=== PATIENT | male | born 1965 | race Caucasian/White ===

== ENCOUNTER 2020-08-22 10:47 | Outpatient (CLI) | payer OTHER, SELFPAY ==
--- NOTE | 2020-08-22 11:00 | XR_ITS ---
WS: [id number] Lumbar spine, 3 views, 08/22/2020 Clinical Data: PSORIATIC ARTHRITIS Comparison: Lumbar spine, 02/28/2011. Findings: No compression fractures or subluxation is seen. There is degenerative disc narrowing at L5. Anterior osteophyte formation is present at L4 and especially L5.. The transverse processes and SI joints are normal. XR/XR lumbar spine 2-3V* [id number] Impression: 1. Degenerative disc narrowing at L5-S1. 2. Anterior osteoarthritic change at L4 and L5.
--- NOTE | 2020-08-22 11:00 | XR_ITS ---
WS: [id number] Right knee, AP and lateral views, 08/22/2020 Clinical Data: PSORIATIC ARTHRITIS Comparison: None. Findings: There is severe osteoarthritic change with narrowing and adjacent calcifications of the medial joint space. There is moderate narrowing of the lateral joint space. The posterior patella shows irregulari ty with adjacent soft tissue calcifications. XR/XR knee RT 1-2V [id number] Impression: Severe osteoarthritis of the right knee.
--- NOTE | 2020-08-22 11:00 | XR_ITS ---
WS: [id number] Left ankle, AP and lateral views, 08/22/2020 Clinical Data: PSORIATIC ARTHRITIS Comparison: None. Findings: No new fractures or dislocations are seen. There is an old healed fracture of the distal left fibula. There is narrowing of the joint space between the distal tibia and the talus. There is osteoarthriti c change of the anterior aspect of the talus and also the posterior aspect. There is a small plantar spur. XR/XR ankle LT 2V [id number] Impression: 1. Narrowing of the left ankle joint space. 2. Osteoarthritic change of the talus.
--- NOTE | 2020-08-22 11:00 | XR_ITS ---
WS: [id number] Right hand, 2 views, 08/22/2020 Clinical Data: PSORIATIC ARTHRITIS Comparison: None. Findings: No fractures or dislocations are seen. The soft tissues are unremarkable. There is flexio n deformity of the right fourth finger at the PIP joint.There is osteoarthritic narrowing at the righ t third MP joint. There is osteoarthritic change of the proximal role of carpal bones as they articul ate with the radius and ulna. There is cyst formation of the distal right radius on the ulnar side. T here is osteoarthritis of the distal radius and ulna as they articulate with the proximal carpal bone s. XR/XR hand RT 2V [id number] Impression: 1. Flexion deformity at right fourth PIP joint of the hand. 2. Osteoarthritic narrowing of the right third MP joint. 3. Osteoarthritis of the proximal row of carpals and of the distal radius and u lavatory attendant of the right wrist.
== END 2020-08-22 10:48 | disposition home or self-care (01) ==
LOC: RAD 10:53
PROVIDERS: Visit Provider Dermatology
DX: L40.50 Arthropathic psoriasis, unspecified (principal); M17.11 Unilateral primary osteoarthritis, right knee; M21.941 Unspecified acquired deformity of hand, right hand
CPT/HCPCS: 72100; 73120; 73560; 73600

== ENCOUNTER → 2020-11-28 09:41 | Outpatient (BNVA) | payer BC, SELFPAY | PROVIDERS: PCP Nurse Practitioner Family; Referring Provider Nurse Practitioner Family; Visit Provider Urology | DX: N40.0 Benign prostatic hyperplasia without lower urinary tract symptoms (principal); R97.20 Elevated prostate specific antigen [PSA] | CPT/HCPCS: 81003; G0103 ==

== ENCOUNTER 2022-01-25 13:18 | Observation (INO) | payer BC, SELFPAY ==
[2022-01-25] VITALS (22 sets, daily range): BP systolic 104–176; BP diastolic 64–140; PULSE 73–122; RESP 13–32; TEMP 36.1–36.5; O2SAT 92–98; BMI 33.6; BMI 33.8
--- NOTE | 2022-01-25 13:44 | ECG_ITS ---
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 Measurements Intervals [place] Rate: 108 P: [place]: QRS: 54 QRSD: 82 T: 66 QT: 338 QTc: 454 Interpretive Statements ATRIAL FIBRILLATION WITH RAPID VENTRICULAR RESPONSE SEPTAL MYOCARDIAL INFARCTION , OF INDETERMINATE AGE [40+ ms Q WAVE IN V1/V2] No previous ECG available for comparison Electronically Signed On 01-25-2022 17:36:02 CDT by Richi Lang M.D. [id number]
[2022-01-25 14:21] LABS: Basophils # 0.1 10^3/uL (0.0-0.1); Basophils % 0.9 %; Eosinophils # 0.3 10^3/uL (0.0-0.8); Eosinophils % 2.3 %; Hematocrit 42.8 % (42.0-52.0); Hemoglobin 13.2 g/dL (11.7-16.6); Lymphocytes # 1.8 10^3/uL (0.8-4.8); Lymphocytes % 13.9 %; Mean Corpuscular HGB Conc 30.8 g/dL (30.0-36.0); Mean Corpuscular Hemoglobin 26.3 pg (28.0-34.0); Mean Corpuscular Volume 85.4 fl (80-94); Mean Platelet Volume 10.5 fL (7.4-10.4); Monocytes # 1.2 10^3/uL (0.2-0.9); Monocytes % 9.3 %; Neutrophils # 9.34 10^3/uL (1.8-7.7); Neutrophils % 73.1 %; Nucleated Red Blood Cells % 0 %; Platelet Count 309 10^3/cmm (130-400); Red Blood Count 5.01 10^6/uL (4.1-5.3); Red Cell Distribution Width 13.7 % (12.1-15.1); White Blood Count 12.8 10^3/uL (4.0-10.0)
--- NOTE | 2022-01-25 14:22 | XRR_ITS ---
PROCEDURE INFORMATION: Exam: XR Chest Exam date and time: 01/25/2022 2:47 PM Age: 56 years old Clinical indication: Shortness of breath; Additional info: SOB TECHNIQUE: Imaging protocol: Radiologic exam of the chest. Views: 1 view. COMPARISON: No relevant prior studies available. FINDINGS: Lungs: Unremarkable. No consolidation. Pleural spaces: Unremarkable. No pleural effusion. No pneumothorax. Heart/Mediastinum: Unremarkable. No cardiomegaly. Bones/joints: Unremarkable. XR/XR chest 1V portable [id number] IMPRESSION: No acute findings.
--- NOTE | 2022-01-25 14:28 | W.ED.SOB ---
HPI - SOB/Dyspnea General: Chief Complaint: Shortness of Breath/Dyspnea Stated Complaint: sob Time Seen by Provider: 01/25/22 14:15 Source: patient Mode of arrival: ambulatory Limitations: no limitations History of Present Illness: HPI Narrative: 56-year-old male states that has been having shortness of breath over the last 2 weeks. He states that he has exertional dyspnea and anytime laying flat he states he also has been having swelling in his legs. Denies any cough denies any fever no history of heart disease he denies any history of congestive heart failure. Patient is tachypneic here patient is also tachycardic in A. fib heart rate in the 120s he has no history of A. fib as well he denies any chest pain. Associated symptoms: Deny abdominal pain, chest pain, fever(s), nausea or vomiting Review of Systems Const: Denies: fever(s), chills, body aches or change in appetite Eyes: Denies: blurry vision or eye discomfort ENMT: Denies: throat pain or dental pain Card: Reports: irregular heart rhythm; Denies: chest pain Resp: Reports: dyspnea GI: Denies: abdominal pain, nausea, vomiting or diarrhea : Denies: dysuria Musc: Reports: extremity swelling; Denies: neck pain or back pain Skin/Breast: Denies: rash Neuro: Denies: headache(s) Psych: Denies: depression Josef/Lymph: Denies: easy bruising All/Imm: Denies: urticaria PFSH ED PFSH: Medical History Elevated PSA Family History Mother Arthritis Father , unknown age Heart attack Social History Smoking and tobacco status: former smoker Alcohol intake: current Marital status: Current occupational status: employed Current occupation: self employeed History of recent travel: No Physical Exam Const: COMMON NORMALS: patient oriented x3 GENERAL APPEARANCE: in distress HENMT: COMMON NORMALS: normocephalic and atraumatic HEAD & SCALP: normocephalic and atraumatic Eye: COMMON NORMALS: Equal, round and reactive pupils present and EOMs intact bilaterally PUPIL: Yes Equal, round and reactive pupils present Neck/C-Spine: COMMON NORMALS: full ROM and supple Chest: COMMONS NORMALS: normal inspection of the chest and normal palpation of entire chest wall Resp: COMMON NORMALS: No retractions, No use of accessory muscles and clear to auscultation bilaterally EFFORT & INSPECTION: Yes tachypneic AUSCULTATION: clear to auscultation bilaterally Cardio: COMMON NORMALS: No murmurs present (Cardio) RATE: tachycardic RHYTHM: abnormal rhythm irregularly irregular GI: COMMON NORMALS: Normal to inspection, nondistended, normoactive bowel sounds present, Soft to palpation, non-tender and no masses PALPATION: Yes Soft to palpation Extremity: COMMON NORMALS: full ROM NARRATIVE EXTREMITY EXAM: 2+ lower extremity edema Neuro: COMMON NORMALS: patient oriented x3, moves all extremities and no focal motor deficits Psych: COMMON NORMALS: mental status grossly normal, Normal thought process present and cooperative THOUGHT PROCESS: Normal thought process present Skin: COMMON NORMALS: no rashes or lesions noted and no wounds GENERAL SKIN EXAM: no rashes or lesions noted Course Vital Signs: Vital signs: Vital Signs Temperature 97.4 F L 01/25/22 13:23 Pulse Rate 80 01/25/22 16:00 Respiratory Rate 20 H 01/25/22 16:00 Blood Pressure 172/116 01/25/22 16:00 Pulse Oximetry 95 01/25/22 16:00 Oxygen Delivery Me thod 01/25/22 15:00 MDM - SOB/Dyspnea Medical Decision Making Patient presents here with shortness of breath mainly laying flat consistent with likely congestive heart failure he does have lower extremity edema and elevated BNP he has no history of heart failure or A. fib he was in A. fib with RVR here as well. Patient given Druix spoke to the hospital will admit his heart rate improved here after Cardizem. Lab Data : 01/25/22 14:11 01/25/22 14:11 Labs/Radiology: Radiology Impressions Chest X-Ray 01/25/22 14:22 IMPRESSION: No acute findings. Chest CTA 01/25/22 15:01 IMPRESSION: Bilateral small volume pleural effusions. Laboratory Results WBC 12.8 10^3/uL (4.0-10.0) H 01/25/22 14:11 RBC 5.01 10^6/uL (4.1-5.3) 01/25/22 14:11 Hgb 13.2 g/dL (11.7-16.6) 01/25/22 14:11 Hct 42.8 % (42.0-52.0) 01/25/22 14:11 MCV 85.4 fl (80-94) 01/25/22 14:11 MCH 26.3 pg (28.0-34.0) L 01/25/22 14:11 MCHC 30.8 g/dL (30.0-36.0) 01/25/22 14:11 RDW 13.7 % (12.1-15.1) 01/25/22 14:11 Plt Count 309 10^3/cmm (130-400) 01/25/22 14:11 MPV 10.5 fL (7.4-10.4) H 01/25/22 14:11 Neut % (Auto) 73.1 % 01/25/22 14:11 Lymph % (Auto) 13.9 % 01/25/22 14:11 Cochran % (Auto) 9.3 % 01/25/22 14:11 Eos % (Auto) 2.3 % 01/25/22 14:11 Baso % (Auto) 0.9 % 01/25/22 14:11 Neut # (Auto) 9.34 10^3/uL (1.8-7.7) H 01/25/22 14:11 Lymph # (Auto) 1.8 10^3/uL (0.8-4.8) 01/25/22 14:11 Cochran # (Auto) 1.2 10^3/uL (0.2-0.9) H 01/25/22 14:11 Eos # (Auto) 0.3 10^3/uL (0.0-0.8) 01/25/22 14:11 Baso # (Auto) 0.1 10^3/uL (0.0-0.1) 01/25/22 14:11 Nucleated RBC % (auto) 0 % 01/25/22 14:11 Nucleated RBCs # 0.0 /100WBC 01/25/22 14:11 PT 13.50 SECONDS (12.1-14.9) 01/25/22 14:11 INR 1.00 (0.8-1.2) 01/25/22 14:11 D-Dimer 2.08 ug/mIFEU (0-0.59) H 01/25/22 14:11 Sodium 136 mmol/L (136-145) 01/25/22 14:11 Potassium 4.4 mmol/L (3.5-5.1) 01/25/22 14:11 Chloride 98 mmol/L (98-107) 01/25/22 14:11 Carbon Dioxide 25 mmol/L (22-29) 01/25/22 14:11 Anion Gap 17.4 (5-19) 01/25/22 14:11 BUN 15 mg/dL (6-20) 01/25/22 14:11 Creatinine 1.3 mg/dL (0.7-1.2) H 01/25/22 14:11 GFR Calculation 56.9 mL/min (90-130) L 01/25/22 14:11 Glucose 155 mg/dL (65-115) H 01/25/22 14:11 Calculated Osmolality 286 mOsm/kg (285-295) 01/25/22 14:11 Calcium 9.6 mg/dL (8.5-10.5) 01/25/22 14:11 Total Bilirubin 0.9 mg/dL (0.15-1.2) 01/25/22 14:11 AST 23 U/L (0-40) 01/25/22 14:11 ALT 19 U/L (0-41) 01/25/22 14:11 Alkaline Phosphatase 83 U/L (40-130) 01/25/22 14:11 Troponin T Baseline 13 ng/L (0-15) 01/25/22 14:11 NT-Pro-B Natriuret Pep 9172 pg/mL (0-125) H 01/25/22 14:11 Total Protein 6.9 g/dL (6.6-8.7) 01/25/22 14:11 Albumin 4.2 g/dL (3.5-5.2) 01/25/22 14:11 Globulin 2.7 g/dL (1.3-4.6) 01/25/22 14:11 SARS-CoV-2 Ag (Rapid) Negative (Negative) 01/25/22 15:05 EKG Data EKG 1: I personally reviewed and interpreted this EKG as follows: EKG Interpretation Date: 01/25/22 EKG interpretation time: 14:05 Interpretation: afib with rvr hr [address] or t wave abnormalities qrs 82 qtc 401 Critical Care Time Critical Care Time: Critical Care Time: Yes Total Critical Care Time: 40 Attestation: The high probability of a clinically significant, sudden or life threatening deterioration of the patient's cv system(s) required my full and direct attention, intervention and personal management. The critical care time is as shown. This time is in addition to time spent performing any reported procedures but includes the following: [x] Data and vital sign review and interpretation [x] Patient assessment, examination and intervention [x] Documentation [x] Medication orders and management Discharge Plan Discharge Patient Disposition: Admitted As Inpatient Clinical Impression: Atrial fibrillation with RVR, Pleural effusion, Leg edema, Acute dyspnea Condition: Stable Coding Level of Care Code ED County Judge for Chg Fwd Exam Comprehensive
[2022-01-25 14:48] LABS: Troponin(5th) Baseline 13 ng/L (0-15)
[2022-01-25 14:56] LABS: D Dimer 2.08 ug/mIFEU (0-0.59)
[2022-01-25 14:58] LABS: Alanine Aminotransferase 19 U/L (0-41); Albumin Level 4.2 g/dL (3.5-5.2); Alkaline Phosphatase 83 U/L (40-130); Aspartate Amino Transferase 23 U/L (0-40); Blood Urea Nitrogen 15 mg/dL (6-20); Calcium 9.6 mg/dL (8.5-10.5); Carbon Dioxide 25 mmol/L (22-29); Chloride 98 mmol/L (98-107); Globulin 2.7 g/dL (1.3-4.6); Glomerular Filtration Rate 56.9 mL/min (90-130); Glucose 155 mg/dL (65-115); NT Pro B Type Natriuretic Pept 9172 pg/mL (0-125); Osmolality Calculated 286 mOsm/kg (285-295); Sodium 136 mmol/L (136-145); Total Bilirubin 0.9 mg/dL (0.15-1.2); Total Protein 6.9 g/dL (6.6-8.7)
[2022-01-25] MEDS: dilTIAZem 5 mg/mL SDV 5 mL 20 MG IVP (14:59)
--- NOTE | 2022-01-25 15:01 | CTR_ITS ---
PROCEDURE INFORMATION: Exam: CTA Chest With Contrast Exam date and time: 01/25/2022 4:11 PM Age: 56 years old Clinical indication: Shortness of breath; Additional info: SOB TECHNIQUE: Imaging protocol: Computed tomographic angiography of the chest with contrast. 3D rendering (Not supervised by radiologist): MIP and/or 3D reconstructed images were created by the technologist. Radiation optimization: All CT scans at this facility use at least one of these dose optimization techniques: automated exposure control; mA and/or kV adjustment per patient size (includes targeted exams where dose is matched to clinical indication); or iterative reconstruction. Contrast material: OMNI 350; Contrast volume: 95 ml; Contrast route: INTRAVENOUS (IV); COMPARISON: CR (CHEST, ) 01/25/2022 2:47 PM RADIATION DOSE METRICS: Total DLP (mGy-cm): 577.3 FINDINGS: Pulmonary arteries: Normal. No pulmonary emboli. Aorta: No aortic aneurysm. Lungs: No consolidation. No masses. Pleural spaces: Bilateral small volume pleural effusions. No pneumothorax. Heart: No cardiomegaly. No pericardial effusion. Lymph nodes: No enlarged lymph nodes. Bones/joints: No acute fracture. Soft tissues: Unremarkable. CT/CT angio chest PE protcl [id number] IMPRESSION: Bilateral small volume pleural effusions.
[2022-01-25 15:06] LABS: Anion Gap 17.4 (5-19)
[2022-01-25 15:07] LABS: Potassium 4.4 mmol/L (3.5-5.1)
[2022-01-25 15:32] LABS: SARS Covid-2 Antigen Negative (Negative)
[2022-01-25] MEDS: iohexol 350 mg/mL 100 mL Btl IV (16:14)
[2022-01-25] MEDS: FUROsemide 10 mg/mL SDV 10mL 60 MG IVP (16:24)
--- NOTE | 2022-01-25 16:36 | USCV_ITS ---
Ash Alejandre Age: 56 Gender: M : 1965 Exam Date: 01/25/2022 16:53 Ordering Phys: Yasmin Guerin MD Technologist: Yaa Solis Exam Location: [facility] [place] Indication: New DX of HF BP: 172 / 116 HR: 93 Rhythm: Atrial fibrillation Technical Quality: Adequate MEASUREMENTS (Male / Female) Normal Values 2D ECHO LV Diastolic Diameter PLAX 4.2 cm 4.2 - 5.9 / 3.9 - 5.3 cm LV Systolic Diameter PLAX 2.8 cm LV Chamber Size 3.3 cm IVS Diastolic Thickness 1.2 cm 0.6 - 1.0 / 0.6 - 0.9 cm IVS Systolic Thickness 1.5 cm LVPW Diastolic Thickness 1.5 cm 0.6 - 1.0 / 0.6 - 0.9 cm LVPW Systolic Thickness 1.8 cm RV Chamber Size 2.3 cm LVOT Diameter 2.0 cm LV Ejection Fraction 2D Teich 61.7 % LV Ejection Fraction MOD 2C 24.4 % LV Ejection Fraction 2C AL 24.2 % LA Diameter 4.3 cm LA Width 2.4 cm LA Height 4.0 cm RA Width 3.5 cm RA Height 4.9 cm Aorta at Sinotubular Diameter 3.1 cm IVC Diameter 2.0 cm M-MODE Aortic Annulus Diameter 4.7 cm LA Ao Ratio MM 1.0 MV E Point Septal Separation 1.6 cm DOPPLER AV Peak Velocity 104.0 cm/s LVOT Peak Velocity 67.0 cm/s AV Area Cont Eq vti 2.6 cm squared AV Area Cont Eq pk 2.1 cm squared MV Area PHT 4.1 cm squared Mitral E to A Ratio 2.3 MV E' Velocity 57.4 cm/s Mitral E to MV E' Ratio 9.0 Mitral E to LV E' Lateral Ratio 7.0 Mitral E to LV E' Septal Ratio 13.0 TR Peak Velocity 157.7 cm/s TR Peak Gradient 10.0 mmHg TR Mean Velocity 116.0 cm/s TR Mean Gradient 6.5 mmHg TR Velocity Time Integral 53.2 cm TV Peak E Velocity 97.0 cm/s Right Atrial Pressure 3.0 mmHg Pulmonary Artery Systolic Pressu 13.0 mmHg RV Acceleration Time 0.1 s RV Ejection Time 0.3 s RV AcT/ET 0.3 FINDINGS Left Ventricle This is a poor quality study with poor visualization. Additionally there is atrial fibrillation with a mildly rapid rate. This diminishes the sensitivity of the examination. The ventricle is probably normal in size. There are no obvious wall motion disturbances. The left ventricular function is probably lower limit of normal to mildly diminished though this is difficult to assess. Diastolic function cannot be determined due to the atrial fibrillation. Right Ventricle Right ventricle not well visualized. Normal right ventricular size and systolic function. Right Atrium The right atrium is normal in size. Left Atrium The left atrium is normal in size. Mitral Valve Mitral valve is not well seen. No obvious regurgitation or stenosis. Aortic Valve Aortic valve is not well seen. No obvious regurgitation or stenosis. Tricuspid Valve Not well seen. Pulmonic Valve Not well seen. Pericardium Normal pericardium without effusion. Aorta Normal ascending aorta dimension. IVC Not well seen. CONCLUSIONS This is a poor quality study with poor visualization. Additionally there is atrial fibrillation with a mildly rapid rate. This diminishes the sensitivity of the examination. The ventricle is probably normal in size. There are no obvious wall motion disturbances. The left ventricular function is probably lower limit of normal to mildly diminished though this is difficult to assess. Diastolic function cannot be determined due to the atrial fibrillation. There are no prior echocardiogram studies to compare. Dr. Richi Lang MD (Electronically Signed) Final Date: 26 January 2022 07:17 S
--- NOTE | 2022-01-25 16:52 | USR_ITS ---
PROCEDURE INFORMATION: Exam: US Duplex Lower Extremity Veins, Bilateral Exam date and time: 01/25/2022 5:19 PM Age: 56 years old Clinical indication: Edema, localized; Lower extremity, bilateral; Additional info: R/O dvt TECHNIQUE: Imaging protocol: Real-time Duplex ultrasound of the bilateral extremities with 2-D duran scale, color Doppler flow and spectral waveform analysis with image documentation. Complete exam focused on the bilateral lower extremity veins. COMPARISON: CR XR ankle LT 2V [id number] 08/22/2020 11:31 AM FINDINGS: Right deep veins: Unremarkable. The common femoral, femoral, proximal profunda femoral and popliteal veins are patent without thrombus. Normal Doppler waveforms. Normal compressibility and/or augmentation response. Right superficial veins: Saphenofemoral junction is patent without thrombus. Left deep veins: Unremarkable. The common femoral, femoral, proximal profunda femoral and popliteal veins are patent without thrombus. Normal Doppler waveforms. Normal compressibility and/or augmentation response. Left superficial veins: Saphenofemoral junction is patent without thrombus. Soft tissues: Unremarkable. US/[place] [id number] IMPRESSION: No evidence of deep vein thrombosis.
[2022-01-25 17:00] LABS: Troponin 5 2HR 11.98 ng/L (0-15)
[2022-01-25 17:02] LABS: Add Urine Microscopic? NO; Charge for UA Resulting for Rev
[2022-01-25 17:06] LABS: Bilirubin Urine Neg (Negative); Blood Urine Neg (Negative); Glucose Urine UA Norm (Normal); Ketones Urine Negative (Negative); Leukocyte Esterase Urine Negative (Negative); Nitrate Urine Negative (Negative); Protein Urine Neg (Negative); Specific Gravity, Urine 1.005 (1.005-1.030); Urine Appearance Clear (CLEAR); Urine Color Straw (Yellow); Urobilinogen Urine Norm (Negative); pH Urine 7 (5-7)
[2022-01-25 17:12] LABS: Amphetamines Screen Urine Negative (Negative); Barbiturates Screen Urine Negative (Negative); Benzodiazepines Screen Urine Negative (Negative); Cocaine Screen Urine Negative (Negative); Opiate Screen Urine Negative (Negative); PCP Screen Urine Negative (Negative); THC Screen Urine Negative (Negative)
[2022-01-25 17:14] LABS: Troponin 5 2HR Delta -1.02 ABS# (0-10)
[2022-01-25 17:39] LABS: Estmated Average Glucose 128; Hemoglobin A1C 6.1 % (4.0-6.0)
[2022-01-25 17:42] LABS: Thyroid Stimulating Hormone 1.65 uIU/mL (0.27-4.20)
[2022-01-25 17:53] LABS: Chol HDL Ratio 4.91 mg/dL (1.0-5.00); Cholesterol 172 mg/dL (0-200); HDL Cholesterol 35 mg/dL (60-100); LDL Cholesterol Calculated 101 mg/dL (50-129); LDL HDL Ratio 2.89 RATIO (0.00-3.22); Triglycerides 180 mg/dL (0-150)
--- NOTE | 2022-01-25 17:55 | ECG_ITS ---
[facility] Test Date: 2022-01-25 Pat Name: Ash Alejandre Department: Room: 277 Gender: Male Gm Mobile: : 1965 Requested By: Yasmin Guerin Order Number: [id number] Francisca MD: Richi Lang M.D. Measurements Intervals [place] Rate: 104 P: [place]: QRS: 49 QRSD: 86 T: 62 QT: 366 QTc: 483 Interpretive Statements ATRIAL FIBRILLATION WITH RAPID VENTRICULAR RESPONSE SEPTAL MYOCARDIAL INFARCTION , OF INDETERMINATE AGE [40+ ms Q WAVE IN V1/V2] Compared to ECG 01/25/2022 14:05:45 No significant changes Electronically Signed On 01-26-2022 7:37:51 CDT by Richi Lang M.D. [id number]
[2022-01-25 18:07] LABS: Troponin(5th) Baseline 14 ng/L (0-15)
[2022-01-25 18:08] LABS: Lactic Sepsis W/Reflex 1.5 mmol/L (0.5-2.2)
--- NOTE | 2022-01-25 18:25 | PM.HP ---
Providers/Chief Complaint Admitting Physician: Yasmin Guerin MD Primary Care Provider: Toshia Park APN Chief Complaint: sob History of Present Illness Ash Alejandre is a 56 year old male without previous history of DE, CHF, A. fib, presented today with chief complaint of 3-week history of shortness of breath. Patient is stating that his main complaint is shortness of breath, orthopnea and PND. He has not experienced any chest pain, fever, diarrhea, sputum production. He is a non-smoker. Quit smoking long time ago. He decided to come to the hospital because of worsening of shortness of breath. He has not noticed any palpitations. No previous history of A. fib. He has been noticing worsening of bilateral leg swelling for last 2 weeks as well. Patient is stating that he takes 2 antihypertensives at home and his systolic blood pressures between 150 to 200 mmHg. In the ER he has been diagnosed with new onset CHF, A. fib RVR AMBER TSH is normal EKG showing A. fib RVR Troponin without significant delta Chest x-ray showing mild bilateral pleural effusion In the ER he received 60 mg of IV Lasix along Cardizem 20 mg Urine output until 7 PM 2700 mL he did receive IV Lasix in the ER heart rate is fluctuating between 100-110 Blood pressure 160s/105 mmHg Asymptomatic at the time of my evaluation Patient cannot recall if he had any history of AV blockage, his previous records reviewed showed he had transient complete heart block secondary to hyperkalemia Review of Systems Const: Reports: fatigue; Denies: fever(s) Eyes: Denies: change in vision ENMT: Denies: throat pain Card: Reports: swelling of feet/ankles, dyspnea on exertion and orthopnea; Denies: chest pain Resp: Reports: dyspnea GI: Denies: abdominal pain : Denies: flank pain Musc: Denies: neck pain Skin/Breast: Denies: rash Neuro: Denies: sensory changes Psych: Denies: anxiety Endo: Denies: polyuria Josef/Lymph: Denies: easy bruising All/Imm: Denies: urticaria Medications/Allergies Home Medications Medication Instructions Recorded Confirmed Last Taken Type glipizide 5 mg tablet See Rx Instructions .Route .COMPLEX 11/28/20 01/25/22 01/25/22 History naproxen sodium 550 mg tablet 550 mg PO BID PRN Pain 11/28/20 01/25/22 Unknown History olmesartan 40 mg tablet 40 mg PO DAILY 11/28/20 01/25/22 01/25/22 History prednisone 5 mg tablet 10 mg PO DAILY PRN joint pain 11/28/20 01/25/22 Unknown History metoprolol tartrate 50 mg tablet 50 mg PO TID 01/25/22 01/25/22 01/25/22 History sildenafil 100 mg tablet 50 mg PO DAILY PRN Erectile 01/25/22 01/25/22 Unknown History Dysfunction Allergies Allergy/AdvReac Type Severity Reaction Status Date / Time No Known Allergies Allergy Unverified 11/28/20 09:27 PFSH Acute PFSH: Medical History BPH without urinary obstruction Complete AV block Transient history secondary to hyperkalemia Diabetes Elevated PSA Elevated PSA Gout Chronic gout Hyperlipidemia Hypertension Surgical History No pertinent past surgical history Family History Mother Arthritis Father , unknown age Heart attack Social History Smoking and tobacco status: former smoker Alcohol intake: current Marital status: Current occupational status: employed Current occupation: self employeed History of recent travel: No Vitals/I&O/Wt Last Vital Signs Temp 97.4 F L 01/25/22 13:23 Pulse 88 01/25/22 17:00 Resp 28 H 01/25/22 17:00 BP 166/138 01/25/22 17:30 Pulse Ox 97 01/25/22 17:30 O2 Del Method 01/25/22 15:00 Weight last 48 hrs Weight 103.419 kg Physical Exam Narrative: Pleasant male Currently saturating well on room air Clinical sign of congestive heart failure number 3+ pitting edema bilateral lower extremity Abdomen soft, distended with obesity S1, S2 variable No murmur appreciated Awake and alert Nonfocal neuro exam at the bedside No active chest pain EOMI, PERRLA Nonfocal neuro exam Data : 01/25/22 14:11 01/25/22 14:11 A&P Assessment and plan (1) Atrial fibrillation with RVR: Status: Acute (2) Pleural effusion: Status: Acute (3) Leg edema: Status: Acute (4) Acute dyspnea: Status: Acute (5) CHF exacerbation: Status: Acute (6) AMBER (acute kidney injury): Status: Acute Plan New onset A. fib RVR I will start therapeutic Lovenox We might need to change if his creatinine worsens tomorrow We will give him metoprolol 100 mg twice daily p.o. regimen if we are not able to control his heart rate and bring it below 80, he might benefit from Cardizem drip Stat echo has been requested He did receive Cardizem in the ER Hypertensive urgency Blood pressure at the time of evaluation 160/105mmhg TSH normal Patient takes metoprolol 50 3 times daily at home along olmesartan 40 mg Now he will get Lasix, he will need optimization of antihypertensive regimen Congestive heart failure Currently on room air, bilateral pleural effusion, small anticipating improvement with diuretics EF is unknown Stat echo has been requested Most likely etiology of heart failure is tachyarrhythmia No active chest pain TSH is normal No signs of murmur on clinical exam 2700 mL urine output at 7 PM Patient does not want Moore catheter placement, will monitor his urine output and urinal, nurses aware AMBER: Most likely related to prerenal cardiorenal in nature, hold olmesartan Full code Chronic gout DVT ruled out with venous Doppler DVT prophylaxis covered with Lovenox Full code Cardiac diet Patient was counseled on sodium less than 2 g intake watching his blood pressure, he only takes 2 and evidence of regimen and his blood pressure at baseline ranges between 150-200mmhg, he will need aggressive antihypertensive regimen at the time of discharge Attestations Medical Necessity Statement*: Anticipating discharge within 48 hours management of new onset A. fib RVR with CHF Time Spent in Patient Care: 45min Coding Level of Care Code Acute Tour Director for [facility] Fwd Diagnoses Atrial fibrillation with RVR I48.91 Pleural effusion J90 Leg edema R60.0 Acute dyspnea R06.00 CHF exacerbation I50.9 AMBER (acute kidney injury) N17.9
[2022-01-25] MEDS: pantoprazole 40 mg SDV IVP (18:31)
--- NOTE | 2022-01-25 18:51 | PC.NURSE ---
received into room 277-2 from er at 1820.report received.pt is alert and oriented x 4.denies cp,sob at present.afib at controlled rate on monitor while at rest.oriented to room environment.instructed to notify staff for any sob,cp,or for any concerns at all.pt verb understanding of instructions
[2022-01-25 19:27] LABS: Troponin 5 2HR 13.45 ng/L (0-15)
[2022-01-25 19:33] LABS: Troponin 5 2HR Delta 0.45 ABS# (0-10)
[2022-01-25] MEDS: dilTIAZem 30 mg Tablet PO (19:39)
[2022-01-25] MEDS: enoxaparin 100 mg/mL Syringe SUBCUT (19:39)
[2022-01-25 19:40] LABS: Adenovirus Not Detected (NOT DETECT); Chlamydia Pneumoniae Not Detected (NOT DETECT); Coronavirus 229E,HKU1,NL63,OC4 Not Detected (NOT DETECT); Human Metapneumovirus Not Detected (NOT DETECT); Human Rhinovirus/Enterovirus Not Detected (NOT DETECT); Influenza A Not Detected (NOT DETECT); Influenza A H1 Not Detected (NOT DETECT); Influenza A H1-2009 Not Detected (NOT DETECT); Influenza A H3 Not Detected (NOT DETECT); Influenza B Not Detected (NOT DETECT); Mycoplasma Pneumoniae Not Detected (NOT DETECT); Parainfluenza Virus Type 1 Not Detected (NOT DETECT); Parainfluenza Virus Type 2 Not Detected (NOT DETECT); Parainfluenza Virus Type 3 Not Detected (NOT DETECT); Parainfluenza Virus Type 4 Not Detected (NOT DETECT); Respiratory Syncytial Virus A Not Detected (NOT DETECT); Respiratory Syncytial Virus B Not Detected (NOT DETECT); SARS-COV-2 Not Detected (NOT DETECT)
[2022-01-25] MEDS: metoprolol tartrate 50 mg Tablet 100 MG PO (19:42)
[2022-01-25 20:39] LABS: Glucose Point of Care 211 mg/dL (70-110)
[2022-01-25] MEDS: acetaminophen 325 mg Tablet 650 MG PO (21:01)
[2022-01-25] MEDS: insulin lispro 100 unit/1 mL SUBCUT (21:03)
--- NOTE | 2022-01-25 21:42 | PC.NURSE ---
Spoke with regarding patients complaint of left shoulder pain, not relieved with PRN Tylenol. Patient requestig something stronger. ordered PRN Morphine 1mg Q8H PRN
--- NOTE | 2022-01-25 22:14 | ECG_ITS ---
[facility] Test Date: 2022-01-25 Pat Name: Ash Alejandre Department: Room: 277 Gender: Male Weight Calculator: : 1965 Requested By: Yasmin Guerin Order Number: [id number] Francisca MD: Richi Lang M.D. Measurements Intervals Trinity Rate: 82 P: [place]: QRS: 51 QRSD: 85 T: 61 QT: 391 QTc: 457 Interpretive Statements ATRIAL FIBRILLATION ABNORMAL RHYTHM ECG Compared to ECG 01/25/2022 17:55:49 Myocardial infarct finding no longer present Electronically Signed On 01-26-2022 7:38:59 CDT by Richi Lang M.D. [id number]
[2022-01-25 23:33] LABS: Troponin 5 6HR 14.38 ng/L (0-15)
[2022-01-25 23:48] LABS: Troponin 5 6HR Delta 0.38 ng/L (0-12)
[2022-01-26] VITALS (12 sets, daily range): BP systolic 107–159; BP diastolic 55–109; PULSE 57–95; RESP 12–22; TEMP 36.5–37.6; O2SAT 92–98
[2022-01-26] MEDS: dilTIAZem 30 mg Tablet PO ×4 (00:06→18:45)
[2022-01-26 02:50] LABS: Basophils # 0.1 10^3/uL (0.0-0.1); Basophils % 1.1 %; Eosinophils # 0.3 10^3/uL (0.0-0.8); Eosinophils % 2.5 %; Hematocrit 41.1 % (42.0-52.0); Hemoglobin 12.5 g/dL (11.7-16.6); Lymphocytes # 1.7 10^3/uL (0.8-4.8); Lymphocytes % 14.4 %; Mean Corpuscular HGB Conc 30.4 g/dL (30.0-36.0); Mean Corpuscular Hemoglobin 26.2 pg (28.0-34.0); Mean Corpuscular Volume 86.2 fl (80-94); Mean Platelet Volume 10.4 fL (7.4-10.4); Monocytes # 1.4 10^3/uL (0.2-0.9); Monocytes % 12.3 %; Neutrophils # 8.05 10^3/uL (1.8-7.7); Neutrophils % 69.1 %; Nucleated Red Blood Cells % 0 %; Platelet Count 289 10^3/cmm (130-400); Red Blood Count 4.77 10^6/uL (4.1-5.3); Red Cell Distribution Width 13.7 % (12.1-15.1); White Blood Count 11.7 10^3/uL (4.0-10.0)
[2022-01-26 03:12] LABS: Alanine Aminotransferase 14 U/L (0-41); Albumin Level 3.4 g/dL (3.5-5.2); Alkaline Phosphatase 82 U/L (40-130); Anion Gap 13.8 (5-19); Aspartate Amino Transferase 16 U/L (0-40); Blood Urea Nitrogen 16 mg/dL (6-20); Calcium 9.2 mg/dL (8.5-10.5); Carbon Dioxide 29 mmol/L (22-29); Chloride 97 mmol/L (98-107); Globulin 3.1 g/dL (1.3-4.6); Glomerular Filtration Rate 48.2 mL/min (90-130); Glucose 109 mg/dL (65-115); Magnesium 1.6 mg/dL (1.7-2.3); Osmolality Calculated 284 mOsm/kg (285-295); Potassium 3.8 mmol/L (3.5-5.1); Sodium 136 mmol/L (136-145); Total Bilirubin 0.9 mg/dL (0.15-1.2); Total Protein 6.5 g/dL (6.6-8.7)
[2022-01-26 06:32] LABS: Glucose Point of Care 125 mg/dL (70-110)
[2022-01-26] MEDS: enoxaparin 100 mg/mL Syringe SUBCUT ×2 (06:47→18:44)
[2022-01-26] MEDS: acetaminophen 325 mg Tablet 650 MG PO ×2 (06:49→14:46)
[2022-01-26] MEDS: potassium chloride ER 20 mEq Tablet 40 MEQ PO (08:22)
[2022-01-26] MEDS: hyDRALAzine 25 mg Tablet 50 MG PO ×2 (08:23→14:46)
[2022-01-26] MEDS: metoprolol tartrate 50 mg Tablet 100 MG PO ×2 (08:28→20:55)
[2022-01-26] MEDS: morphine 4 mg/mL SDV 1 mL 1 MG IVP ×2 (08:38→17:00)
[2022-01-26] MEDS: magnesium sulfate premix 2 GM/50 ML PIGGYBACK IV (09:25)
[2022-01-26] MEDS: FUROsemide 10 mg/mL SDV 2mL 20 MG IVP (09:25)
[2022-01-26 11:49] LABS: Glucose Point of Care 275 mg/dL (70-110)
[2022-01-26] MEDS: insulin lispro 100 unit/1 mL SUBCUT (12:19)
--- NOTE | 2022-01-26 14:18 | P.PN_ITS ---
Subjective Subjective: Seen this morning. Heart rate is controlled now 80s to 90s. Echo is pending. Vitals/I&O/Wt Last Vital Signs Temp 97.9 F 01/26/22 11:29 Pulse 91 01/26/22 11:29 Resp 20 H 01/26/22 11:29 BP 159/109 01/26/22 11:29 Pulse Ox 95 01/26/22 11:29 O2 Del Method 01/26/22 11:29 01/25/22 01/26/22 01/26/22 22:59 06:59 14:59 Intake Total 120 / 120 120 / 240 462 / 462 Output Total 3325 / 3325 1225 / 4550 460 / 460 Balance -3205 / -3205 -1105 / -4310 2 / 2 Weight last 48 hrs Weight 104.468 kg Weight 103.901 kg Weight 103.419 kg Physical Exam Narrative: Pleasant male Currently saturating well on room air 1+ bilateral lower extremity edema Abdomen soft, nontender S1, S2 variable No murmur appreciated Awake and alert Nonfocal neuro exam at the bedside No active chest pain EOMI, PERRLA Nonfocal neuro exam Lungs clear to auscultation bilaterally at this time with mild rhonchi at bases Data : 01/26/22 02:26 01/26/22 02:26 A&P Assessment and plan (1) Atrial fibrillation with RVR: Status: Acute (2) Pleural effusion: Status: Acute (3) Leg edema: Status: Acute (4) Acute dyspnea: Status: Acute (5) CHF exacerbation: Status: Acute (6) AMBER (acute kidney injury): Status: Acute Plan New onset A. fib RVR Patient was started on therapeutic Lovenox. Due to AMBER and creatinine going up further. I will adjust dose to renally dose it. Echo ordered. Results pending Continue patient on Cardizem 30 every 6, metoprolol 100 twice daily Hypertensive urgency Blood pressure at the time of admission 160/105mmhg TSH normal Hold olmesartan for now. Placed on hydralazine 50 3 times daily. Patient did receive Lasix 60 in ER, 40 subsequently Lasix 20 IV to be given now. New onset congestive heart failure Currently on room air, bilateral pleural effusion, small anticipating improvement with diuretics EF is unknown Stat echo has been requested Most likely etiology of heart failure is tachyarrhythmia No active chest pain TSH is normal No signs of murmur on clinical exam 2700 mL urine output at 7 PM Patient does not want Moore catheter placement, will monitor his urine output and urinal, nurses aware Consult cardiology for new onset heart failure AMBER: Most likely related to prerenal cardiorenal in nature, hold olmesartan Prerenal versus diuretic use We will continue to monitor for now. Full code Chronic gout DVT ruled out with venous Doppler DVT prophylaxis covered with Lovenox Full code Cardiac diet Patient was counseled on sodium less than 2 g intake watching his blood pressure, he only takes 2 and evidence of regimen and his blood pressure at [facility] ranges between 150-200mmhg, he will need aggressive antihypertensive regimen at the time of discharge Attestations Medical Necessity Statement*: Anticipating discharge within 48 hours management of new onset A. fib RVR with CHF Time Spent in Patient Care: 45min Coding Level of Care Code Acute Absorption Plant Operator for Chg Fwd Diagnoses Atrial fibrillation with RVR I48.91 Pleural effusion J90 Leg edema R60.0 Acute dyspnea R06.00 CHF exacerbation I50.9 AMBER (acute kidney injury) N17.9
[2022-01-26 16:32] LABS: Glucose Point of Care 101 mg/dL (70-110)
[2022-01-26] MEDS: pantoprazole 40 mg SDV IVP (16:58)
--- NOTE | 2022-01-26 17:51 | PM.CONSULT ---
Providers/Reason For Consult Consulting Physician/Specialty*: LUIS F Ayala MD/cardiology Reason for Consult*: Patient with a new onset of heart failure Requesting Physician: Dr. Guerin Attending Physician: Yasmin Guerin MD Primary Care Provider: Toshia Park APN History of Present Illness History of Present Illness Ash Alejandre is a 56 year old male with a history of diabetes, essential benign hypertension, gouty arthritis, is presenting with complaints of shortness of breath and leg swelling for the last 2 weeks. This patient has no previous history for any cardiac illness. For the last 2 weeks, he been having significantly dyspnea on exertion and some orthopnea. He was finding it difficult to lie flat. He was mostly sitting up in the chair. For the last 3 to 4 days, he was not able to sleep well even with the sitting position. Because of these, he decided to come to the hospital emergency room. He did not have any chest pain or palpitations. No fever, chills. He might have some dry cough. Initially he thought that he may be having COVID-19 infection. However since the symptoms are not getting better, he decided to come to the hospital. He denies any chest pain or palpitations. No dizziness or syncopal episodes. He is mostly having a dry cough. He has a history of tophaceous gout. No recent flareup. Medications/Allergies Home Medications Medication Instructions Recorded Confirmed Last Taken Type glipizide 5 mg tablet See Rx Instructions .Route .COMPLEX 11/28/20 01/25/22 01/25/22 History naproxen sodium 550 mg tablet 550 mg PO BID PRN Pain 11/28/20 01/25/22 Unknown History olmesartan 40 mg tablet 40 mg PO DAILY 11/28/20 01/25/22 01/25/22 History prednisone 5 mg tablet 10 mg PO DAILY PRN joint pain 11/28/20 01/25/22 Unknown History metoprolol tartrate 50 mg tablet 50 mg PO TID 01/25/22 01/25/22 01/25/22 History sildenafil 100 mg tablet 50 mg PO DAILY PRN Erectile 01/25/22 01/25/22 Unknown History Dysfunction Allergies Allergy/AdvReac Type Severity Reaction Status Date / Time No Known Allergies Allergy Unverified 11/28/20 09:27 Current Medications Generic Name Dose Route Start Last Admin Trade Name Freq PRN Reason Stop Dose Admin Acetaminophen 650 mg 01/25/22 16:36 01/26/22 14:46 Acetaminophen 325 Mg Tablet PO 650 mg Q6H PRN Administration Mild/Mod Pain Or Temp >/= 101 Diltiazem HCl 30 mg 01/25/22 18:55 01/26/22 12:19 Diltiazem 30 Mg Tablet PO 30 mg Q6H TONYA Administration Enoxaparin Sodium 100 mg 01/25/22 18:30 01/26/22 06:47 Enoxaparin 100 Mg/Ml Syringe 1 mg/kg (100 mg) 100 mg SUBCUT Administration Q12H TONYA Hydralazine HCl 50 mg 01/26/22 09:00 01/26/22 14:46 Hydralazine 25 Mg Tablet PO 50 mg TID TONYA Administration Insulin Human Lispro 0 unit 01/25/22 18:00 01/26/22 17:43 Insulin Lispro 100 Unit/1 Ml SUBCUT Not Given WM&BEDTIME TONYA Protocol Metoprolol Tartrate 100 mg 01/25/22 21:00 01/26/22 08:28 Metoprolol Tartrate 50 Mg Tablet PO 100 mg BID@0900,2100 TONYA Administration Morphine Sulfate 1 mg 01/25/22 21:41 01/26/22 08:38 Morphine 4 Mg/Ml Sdv 1 Ml IVP 1 mg Q8H PRN Administration SEVERE PAIN Pantoprazole Sodium 40 mg 01/25/22 17:00 01/26/22 16:58 Pantoprazole 40 Mg Sdv IVP 40 mg Q24H TONYA Administration PFSH Acute PFSH: Medical History BPH without urinary obstruction Complete AV block Transient history secondary to hyperkalemia Diabetes Elevated PSA Elevated PSA Gout Chronic gout Hyperlipidemia Hypertension Surgical History No pertinent past surgical history Family History Mother Arthritis Father , unknown age Heart attack Social History Smoking and tobacco status: former smoker Alcohol intake: current Marital status: Current occupational status: employed Current occupation: self employeed History of recent travel: No Vitals/I&O/Wt Last Vital Signs Temp 97.9 F 01/26/22 11:29 Pulse 91 01/26/22 11:29 Resp 20 H 01/26/22 11:29 BP 159/109 01/26/22 11:29 Pulse Ox 95 01/26/22 11:29 O2 Del Method 01/26/22 11:29 01/26/22 01/26/22 01/26/22 06:59 14:59 22:59 Intake Total 120 / 240 822 / 822 Output Total 1225 / 4550 460 / 460 Balance -1105 / -4310 362 / 362 Weight last 48 hrs Weight 230 lb 5 oz Weight 229 lb 1 oz Weight 228 lb Physical Exam Narrative: GENERAL: The patient is alert and oriented times three. Not in any acute distress. HEENT: No significant pallor, icterus or lymphadenopathy.Oral cavity: There are no mucous membrane lesions. NECK: Trachea appears to be central. No masses noted. No JVD or thyromegaly appreciated. RESPIRATORY: Chest is symmetrical. No intercostals muscle retraction or any accessory muscle activation. There is no chest wall tenderness. Breath sounds are heard bilaterally. No rales or rhonchi heard. No evidence of any consolidation. BREASTS: Deferred. HEART: The heart sounds are normal. No S3 or S4. No significant murmurs. No pericardial rub ABDOMEN: No vessel pulsations or distention. No tenderness. No organomegaly appreciated. Bowel sounds are normally heard. : Deferred. RECTAL: Deferred. LYMPHATIC: No lymphadenopathy noted in the neck. EXTREMITIES: 1-2+ edema both lower extremities. MUSCULOSKELETAL: Tophaceous joints, involving the small joints of the hand and the elbows. Deformities of the small joints of the both hands SKIN: There are no significant rashes or ecchymosis NEUROPSYCHIATRIC: The patient is alert and oriented x3. Appears to be in a good mood. No tremors or rigidity noted. Data : 01/26/22 02:26 01/26/22 02:26 EKG 1: My Interpretation: Atrial fibrillation with a controlled ventricular response rate of [address] Ts. EKG computer-generated impression: Chest X-Ray 01/25/22 14:22 IMPRESSION: No acute findings. Chest CTA 01/25/22 15:01 IMPRESSION: Bilateral small volume pleural effusions. Venous Duplex 01/25/22 16:52 IMPRESSION: No evidence of deep vein thrombosis. Other data: Echocardiogram from 01/25/2022 This is a poor quality study with poor visualization.? ?Additionally there is atrial fibrillation with a mildly rapid ?rate.? This diminishes the sensitivity of the examination.? The ?ventricle is probably normal in size.? There are no obvious wall ?motion disturbances.? The left ventricular function is probably ?lower limit of normal to mildly diminished though this is ?difficult to assess.? Diastolic function cannot be determined ?due to the atrial fibrillation. ?There are no prior echocardiogram studies to compare. A&P Assessment and plan (1) Heart failure with preserved ejection fraction: Atrial fibrillation, essential benign hypertension and coronary ischemia are the likely possibilities, causing the heart failure. Hemodynamically seems to be stable. Seems to be responding to the IV diuretics. At this point, I may continue the IV Lasix with potassium supplements. For further evaluation of the heart failure, a Myocardial perfusion imaging would be appropriate. He may be scheduled for a Lexiscan/sestamibi/sestamibi stress test. Status: Acute (2) New onset atrial fibrillation: Atrial fibrillation currently with a controlled ventricular response rate. Agree with anticoagulation. May titrate the dose of the metoprolol for better heart rate control Status: Acute (3) Benign essential hypertension with target blood pressure below 140/90: The blood pressure seems to be fairly under control. May continue on the current medications. Status: Acute (4) T2DM (type 2 diabetes mellitus): Management as per the primary. Status: Acute (5) AMBER (acute kidney injury): We will be careful with the IV diuresis. Status: Acute Plan Other problems are Small pleural effusion, possibly from the heart failure Elevated white cell count Gouty arthritis, chronic. Based on the patient's clinical response and the results of the above, further recommendations will be made. Thank you for the opportunity to evaluate this patient and make these recommendations Consult Attestations Medical Necessity Statement: Patient requires continued hospital stay for close monitoring and further management Coding Level of Care Code Acute Hr Associate for Dru Watts Diagnoses Heart failure with preserved ejection fraction I50.30 New onset atrial fibrillation I48.91 Benign essential hypertension with target blood pressure below 140/90 I10 T2DM (type 2 diabetes mellitus) E11.9 AMBER (acute kidney injury) N17.9
[2022-01-26] MEDS: FUROsemide 10 mg/mL SDV 4mL 40 MG IVP (18:54)
[2022-01-26] MEDS: potassium chloride ER 20 mEq Tablet PO (18:54)
[2022-01-26 20:58] LABS: Glucose Point of Care 173 mg/dL (70-110)
[2022-01-27] VITALS (12 sets, daily range): BP systolic 100–135; BP diastolic 68–100; PULSE 80–104; RESP 16–24; TEMP 36.1–36.8; O2SAT 94–98
--- NOTE | 2022-01-27 | ECG_ITS ---
[facility] Test Date: 2022-01-27 Pat Name: Ash Alejandre Department: Room: 277 Gender: Male [employer] Assistant Football Coach: Stephany Jay : 1965 Requested By: Aaliyah Ayala Order Number: [id number] Reading MD: Aaliyah Ayala M.D. Interpretive Statements NAME OF STUDY: LEXISCAN SESTAMIBI STRESS TEST INDICATION: Chest Pain PROCEDURE: At the baseline, the EKG revealed atrial fibrillation with some nonspecific T wave changes. The baseline heart was 99 bpm with a blood pressue of 139/96 mm of Hg Lexiscan was infused over a period of 20 seconds. A total of 0.4 milligrams of Lexiscan was infused. The stress phase was continued for a total of 5 minutes. Heart rate at the end of the stress phase was 106 bpm with a blood pressure 124/80 mm of Hg. The EKG at the peak infusion revealed no significant changes. Sestamibi was injected 20 seconds after the Lexiscan infusion. Heart rate at the end of the recovery phase was 105 bpm with a blood pressure of 135/77 mm of Hg. CONCLUSION: 1. No significant EKG changes with the LexiScan infusion 2. No LexiScan induced chest pain or cardiac arrhythmia 3. Normal blood pressure and heart rate response 4. Sestamibi/sestamibi perfusion scan pending; see separate report. Electronically Signed On 02-07-2022 16:53:20 CDT by Aaliyah Ayala M.D. [id number]
[2022-01-27] MEDS: morphine 4 mg/mL SDV 1 mL 1 MG IVP ×3 (00:37→17:26)
[2022-01-27] MEDS: dilTIAZem 30 mg Tablet PO ×5 (00:37→23:47)
[2022-01-27 05:31] LABS: Basophils # 0.1 10^3/uL (0.0-0.1); Basophils % 0.7 %; Eosinophils # 0.1 10^3/uL (0.0-0.8); Eosinophils % 0.6 %; Hematocrit 40.6 % (42.0-52.0); Hemoglobin 12.2 g/dL (11.7-16.6); Lymphocytes # 0.9 10^3/uL (0.8-4.8); Lymphocytes % 6.9 %; Mean Corpuscular Hemoglobin 25.9 pg (28.0-34.0); Mean Corpuscular Volume 86.2 fl (80-94); Mean Platelet Volume 10.8 fL (7.4-10.4); Monocytes # 1.7 10^3/uL (0.2-0.9); Monocytes % 12.7 %; Neutrophils # 10.65 10^3/uL (1.8-7.7); Neutrophils % 78.4 %; Nucleated Red Blood Cells % 0 %; Platelet Count 289 10^3/cmm (130-400); Red Blood Count 4.71 10^6/uL (4.1-5.3); Red Cell Distribution Width 14.1 % (12.1-15.1); White Blood Count 13.6 10^3/uL (4.0-10.0)
[2022-01-27 05:51] LABS: Blood Urea Nitrogen 20 mg/dL (6-20); Calcium 8.9 mg/dL (8.5-10.5); Carbon Dioxide 27 mmol/L (22-29); Chloride 93 mmol/L (98-107); Glomerular Filtration Rate 39.1 mL/min (90-130); Glucose 162 mg/dL (65-115); Magnesium 1.9 mg/dL (1.7-2.3); Osmolality Calculated 280 mOsm/kg (285-295); Sodium 132 mmol/L (136-145)
[2022-01-27 05:52] LABS: Anion Gap 16.4 (5-19); Potassium 4.4 mmol/L (3.5-5.1)
[2022-01-27] MEDS: enoxaparin 100 mg/mL Syringe SUBCUT (06:17)
[2022-01-27 06:22] LABS: Glucose Point of Care 153 mg/dL (70-110)
[2022-01-27] MEDS: regadenoson 0.4 Mg/5 ml Syringe IVP (07:22)
--- NOTE | 2022-01-27 08:00 | NMCV_ITS ---
NM pricila perf SPECT r/s* [id number] [address] Ash Age: 56 Gender: M : 1965 Exam Date: 01/27/2022 06:37 Ordering Phys: Aaliyah Ayala MD ([email or web address]) Technologist: SARAH Montanez Exam Location: [facility] Indications: CHEST PAIN STRESS TEST Please see separate stress test report in [facility] for full findings IMAGE PROTOCOL Rest/Stress 1 Lexiscan Day Radiopharmaceutical Dose (mCi) Administration Site Administered by Rest: Tc-99m 11.0 IV SARAH Laurent Sestamibi Stress:Tc-99m 32.9 IV SARAH Laurent Sestamibi Rest: 27-Jan-2022 60 Discovery 630 Stress: 27-Jan-2022 30 Discovery 630 0.4mg Lexiscan. Images obtained in supine and prone position. SPECT RESULTS Technical Quality: Excellent Raw Data Analysis: Normal Image Corrections: No attenuation or motion correction applied Summed Stress Score: 0 Summed Rest Score: 4 Summed Difference Score: 0 PERFUSION FINDINGS Small area of slightly decreased tracer uptake was noted in the basal, mid and apical inferior wall region with no significant reversibility. FUNCTIONAL RESULTS (calculated via Gated SPECT) Stress Image LV EF (%): 59 Stress EDV (mL):125 TID: 1.09 Stress ESV (mL):51 FUNCTIONAL FINDINGS: Segmental wall motion analysis revealing no gross wall motion abnormalities IMPRESSIONS 1. Myocardial perfusion imaging revealing small area of persistent decreased tracer uptake in the inferior wall region suggesting myocardial scarring versus attenuation artifact. 2. Normal LV ejection fraction 59%. 3. Segmental wall motion analysis revealing no gross wall motion abnormalities 4. LV volume, upper limit of normal(51 mL) Low probability for coronary ischemia, based on the above findings No similar previous studies are available for comparison Dr Aaliyah Ayala MD [facility] (Electronically Signed) Final Date: 27 January 2022 08:39 S
--- NOTE | 2022-01-27 08:29 | PM.PN ---
Subjective Subjective: Patient will be going for stress test today. No acute events overnight. He complains of b/l foot pain, says he is having a gout flare. requesting colchicine Vitals/I&O/Wt Last Vital Signs Temp 97.3 F L 01/27/22 04:00 Pulse 104 H 01/27/22 07:28 Resp 24 H 01/27/22 04:00 BP 135/77 01/27/22 07:28 Pulse Ox 97 01/27/22 04:00 O2 Del Method 01/26/22 18:54 01/26/22 01/27/22 01/27/22 22:59 06:59 14:59 Intake Total 360 / 1182 320 / 1502 Output Total 805 / 1265 Balance -445 / -83 320 / 237 Weight last 48 hrs Weight 104.468 kg Weight 103.901 kg Weight 103.419 kg Physical Exam Narrative: Pleasant male Currently saturating well on room air 1+ bilateral lower extremity edema Abdomen soft, nontender S1, S2 variable No murmur appreciated Awake and alert Nonfocal neuro exam at the bedside No active chest pain EOMI, PERRLA Nonfocal neuro exam Lungs clear to auscultation bilaterally , no wheezes or ronchi tophi noted on hands, elbows. b/l feet very tender to light touch. Data : 01/27/22 05:12 01/27/22 05:12 A&P Assessment and plan (1) Atrial fibrillation with RVR: Status: Acute (2) Pleural effusion: Status: Acute (3) Leg edema: Status: Acute (4) Acute dyspnea: Status: Acute (5) CHF exacerbation: Status: Acute (6) AMBER (acute kidney injury): Status: Acute Plan New onset A. fib RVR Patient was started on therapeutic Lovenox. Due to AMBER and creatinine going up further. I will adjust dose to renally dose it. Echo ordered. Poor visualization. No obvious wall motion disturbances. Left ventricular function probably at lower limit of normal to mildly diminished but difficult to assess. Continue patient on Cardizem 30 every 6, metoprolol 100 twice daily Start eliquis Hypertensive urgency Blood pressure at the time of admission 160/105mmhg TSH normal Hold olmesartan for now. Placed on hydralazine 50 3 times daily. Patient did receive Lasix 60 in ER, 40 subsequently BP better. Hold diuretics New onset congestive heart failure Currently on room air, bilateral pleural effusion, small anticipating improvement with diuretics EF is unknown Stat echo has been requested Most likely etiology of heart failure is tachyarrhythmia No active chest pain TSH is normal No signs of murmur on clinical exam 3 L urine output since admission Patient refused Moore catheter. Cardiology consulted. Plan to do stress test today. AMBER: Most likely related to prerenal cardiorenal in nature, hold olmesartan Prerenal versus diuretic use Cr worsening. 1.[address] on gentle IV hydration today. NS 75 cc/hr Acute gout flare, hx of tophaceous gout -prednisone 60 x5 days check uric acid f/u with rheumatology outpatient plan to dc in AM pending clinical improvement Full code Chronic gout DVT ruled out with venous Doppler DVT prophylaxis covered with Lovenox Full code Cardiac diet Patient was counseled on sodium less than 2 g intake watching his blood pressure, he only takes 2 and evidence of regimen and his blood pressure at baseline ranges between 150-200mmhg, he will need aggressive antihypertensive regimen at the time of discharge Attestations Medical Necessity Statement*: Patient going for stress test today. Has acute gout flare. Bilateral feet. Unable to bear weight on feet. Has started steroids. He will need to stay in the hospital today due to that reason. Discharge possibly in a.m. pending clinical improvement. Coding Level of Care Code Acute Environmental Compliance Technician for Tylerg Stefanie Diagnoses Atrial fibrillation with RVR I48.91 Pleural effusion J90 Leg edema R60.0 Acute dyspnea R06.00 CHF exacerbation I50.9 AMBER (acute kidney injury) N17.9
[2022-01-27] MEDS: metoprolol tartrate 50 mg Tablet 100 MG PO ×2 (08:56→20:39)
[2022-01-27] MEDS: hyDRALAzine 25 mg Tablet 50 MG PO ×3 (08:56→20:39)
[2022-01-27] MEDS: predniSONE 20 mg Tablet 60 MG PO (11:06)
[2022-01-27] MEDS: acetaminophen 325 mg Tablet 650 MG PO (11:07)
[2022-01-27 11:29] LABS: Glucose Point of Care 171 mg/dL (70-110)
[2022-01-27] MEDS: insulin lispro 100 unit/1 mL SUBCUT ×3 (12:17→20:39)
[2022-01-27 13:18] LABS: Uric Acid 9.6 mg/dL (3.4-7.0)
[2022-01-27] MEDS: sodium chloride 0.9% 1,000 ML 75 ML IV (15:13)
[2022-01-27 16:26] LABS: Glucose Point of Care 273 mg/dL (70-110)
[2022-01-27] MEDS: pantoprazole 40 mg SDV IVP (17:25)
--- NOTE | 2022-01-27 18:16 | P.PN_ITS ---
Subjective Subjective: The patient's shortness of breath has significantly improved. Mainly complaining about pain in the feet, at the bottom. He has difficulty in ambulation. He is wondering whether this is related to gout exacerbation. No chest pain. Normal fever or chills. Medications: Medication Review Details: Current Medications Acetaminophen (Acetaminophen 325 Mg Tablet) 650 mg PO Q6H PRN PRN Reason: Mild/Mod Pain Or Temp >/= 101 Last Admin: 01/27/22 11:07 Dose: 650 mg Aminophylline (Aminophylline 25 Mg/Ml Sdv 10 Ml) 25 mg IVP Q2M PRN PRN Reason: see dose instructions Stop: 01/28/22 06:21 Apixaban (Apixaban 5 Mg Tablet) 5 mg PO BID@0900,2100 [facility] Dextrose (Dextrose 50% Syringe 50 Ml) 25 ml IVP ONCE PRN; Protocol PRN Reason: hypoglycemia protocol Dextrose (Dextrose 50% Syringe 50 Ml) 50 ml IVP PRN PRN; Protocol PRN Reason: hypoglycemia protocol Diltiazem HCl (Diltiazem 30 Mg Tablet) 30 mg PO Q6H [facility] Last Admin: 01/27/22 12:28 Dose: 30 mg Furosemide (Furosemide 10 Mg/Ml Sdv 4ml) 40 mg IVP DAILY [facility] Glucagon (Glucagon 1 Mg/Ml Inj 1 Ml) 1 mg IM ONCE PRN; Protocol PRN Reason: Adult Acute Hypoglycemia Prot. Hydralazine HCl (Hydralazine 25 Mg Tablet) 50 mg PO TID [facility] Last Admin: 01/27/22 16:24 Dose: 50 mg Dextrose (D5w) 500 mls @ 100 mls/hr IV ONCE PRN; Protocol PRN Reason: Adult Acute Hypoglycemia Prot Sodium Chloride (Sodium Chloride 0.9%) 1,000 mls @ 75 mls/hr IV .[id number] [facility] Last Admin: 01/27/22 15:13 Dose: 75 mls/hr Insulin Human Lispro (Insulin Lispro 100 Unit/1 Ml) 0 unit SUBCUT WM&BEDTIME [facility]; Protocol Last Admin: 01/27/22 17:26 Dose: 8 unit Labetalol HCl (Labetalol 5 Mg/Ml Sdv 20ml) 10 mg IVP Q4H PRN PRN Reason: HYPERTENSION Magnesium Lactate (Magnesium Lactate 84 Mg Tablet) 84 mg PO BID [facility] Metoprolol Tartrate (Metoprolol Tartrate 50 Mg Tablet) 100 mg PO BID@0900,2100 [facility] Last Admin: 01/27/22 08:56 Dose: 100 mg Morphine Sulfate (Morphine 4 Mg/Ml Sdv 1 Ml) 1 mg IVP Q8H PRN PRN Reason: SEVERE PAIN Last Admin: 01/27/22 17:26 Dose: 1 mg Nitroglycerin (Nitroglycerin 0.4 Mg Sublingual Tablet) 0.4 mg SUBLINGUAL Q5M PRN PRN Reason: CHEST PAIN Stop: 01/28/22 06:21 Ondansetron HCl (Ondansetron 2 Mg/Ml Sdv 2 Ml) 4 mg IVP Q2M PRN PRN Reason: NAUSEA Pantoprazole Sodium (Pantoprazole 40 Mg Sdv) 40 mg IVP Q24H [facility] Last Admin: 01/27/22 17:25 Dose: 40 mg Prednisone (Prednisone 20 Mg Tablet) 60 mg PO DAILY [facility] Stop: 01/31/22 09:01 Last Admin: 01/27/22 11:06 Dose: 60 mg Vitals/I&O/Wt Last Vital Signs Temp 98.3 F 01/27/22 15:18 Pulse 80 01/27/22 16:31 Resp 16 01/27/22 17:26 BP 128/83 01/27/22 15:18 Pulse Ox 96 01/27/22 15:18 O2 Del Method 01/27/22 15:18 01/27/22 01/27/22 01/27/22 06:59 14:59 22:59 Intake Total 320 / 1502 240 / 240 360 / 600 Output Total 200 / 200 200 / 400 Balance 320 / 237 40 / 40 160 / 200 Weight last 48 hrs Weight 230 lb 5 oz Weight 229 lb 1 oz Physical Exam Narrative: GENERAL: The patient is alert and oriented times three. Not in any acute distress. HEENT: No significant pallor, icterus or lymphadenopathy.Oral cavity: There are no mucous membrane lesions. NECK: Trachea appears to be central. No masses noted. No JVD or thyromegaly appreciated. RESPIRATORY: Chest is symmetrical. No intercostals muscle retraction or any accessory muscle activation. There is no chest wall tenderness. Breath sounds are heard bilaterally. No rales or rhonchi heard. No evidence of any consolidation. BREASTS: Deferred. HEART: The heart sounds are normal. No S3 or S4. No significant murmurs. No pericardial rub ABDOMEN: No vessel pulsations or distention. No tenderness. No organomegaly appreciated. Bowel sounds are normally heard. : Deferred. RECTAL: Deferred. LYMPHATIC: No lymphadenopathy noted in the neck. EXTREMITIES: Trace edema both lower extremities. MUSCULOSKELETAL: Tophaceous joints, involving the small joints of the hand and the elbows. Deformities of the small joints of the both hands SKIN: There are no significant rashes or ecchymosis NEUROPSYCHIATRIC: The patient is alert and oriented x3. Appears to be in a good mood. No tremors or rigidity noted. Data : 01/27/22 05:12 01/27/22 05:12 A&P Assessment and plan (1) Heart failure with preserved ejection fraction: Patient had a Myocardial perfusion imaging today. He was found to have no significant perfusion abnormalities. Based on the results, since the probability of him having significant coronary ischemia is very low. At this point, it may be appropriate to continue the medical treatment. Patient may be started on Lasix 40 mg p.o. daily with potassium 20 mEq p.o. daily Status: Acute (2) New onset atrial fibrillation: Atrial fibrillation currently with a controlled ventricular response rate. Agree with anticoagulation. May titrate the dose of the metoprolol for better heart rate control patient has a high thromboembolic risk. He needs to be on long-term oral anticoagulation, possibly with Eliquis. Status: Acute (3) Benign essential hypertension with target blood pressure below 140/90: The blood pressure seems to be fairly under control. May continue on the current medications. Status: Acute (4) T2DM (type 2 diabetes mellitus): Management as per the primary. Status: Acute (5) AMBER (acute kidney injury): We will be careful with the IV diuresis. Status: Acute Plan Other problems are Small pleural effusion, possibly from the heart failure Elevated white cell count- slightly going up Gouty arthritis, -acute exacerbation,?. Management of possible gouty arthritis, as per the primary. Since the patient's overall cardiovascular status seems to be stable, may require any specific treatment. I may start the patient on Lasix 40 mg p.o. daily along with the potassium 10 mEq p.o. daily. He will be seen by the nurse practitioner in the office in a week to adjust the dose of diuretics. I may see him in the office in a month. Attestations Medical Necessity Statement*: Deferred to the primary Coding Level of Care Code Acute Judge'S Clerk for Chg Fwd History Expanded Problem Focused Exam Expanded Problem Focused Medical Decision Making Moderate Complexity Diagnoses Heart failure with preserved ejection fraction I50.30 New onset atrial fibrillation I48.91 Benign essential hypertension with target blood pressure below 140/90 I10 T2DM (type 2 diabetes mellitus) E11.9 AMBER (acute kidney injury) N17.9
[2022-01-27] MEDS: magnesium lactate 84 mg Tablet PO (18:19)
[2022-01-27 20:26] LABS: Glucose Point of Care 336 mg/dL (70-110)
[2022-01-28] VITALS (11 sets, daily range): BP systolic 104–143; BP diastolic 68–95; PULSE 54–96; RESP 15–25; TEMP 36.1–36.8; O2SAT 92–98
[2022-01-28] MEDS: sodium chloride 0.9% 1,000 ML 75 ML IV ×2 (03:12→16:44)
[2022-01-28] MEDS: dilTIAZem 30 mg Tablet PO ×3 (05:24→17:41)
[2022-01-28 06:27] LABS: Glucose Point of Care 144 mg/dL (70-110)
[2022-01-28] MEDS: metoprolol tartrate 50 mg Tablet 100 MG PO ×2 (09:18→20:46)
[2022-01-28] MEDS: magnesium lactate 84 mg Tablet PO ×2 (09:18→17:41)
[2022-01-28] MEDS: hyDRALAzine 25 mg Tablet 50 MG PO ×3 (09:18→20:46)
[2022-01-28] MEDS: apixaban 5 mg Tablet PO ×2 (09:18→20:46)
[2022-01-28] MEDS: insulin lispro 100 unit/1 mL SUBCUT ×4 (09:19→20:46)
[2022-01-28] MEDS: predniSONE 20 mg Tablet 60 MG PO (09:19)
[2022-01-28] MEDS: morphine 4 mg/mL SDV 1 mL 1 MG IVP (09:48)
--- NOTE | 2022-01-28 10:14 | PM.PN ---
Subjective Subjective: The patient is feeling okay with no chest pain or chest tightness. No palpitation, dizziness or syncopal episode. No unusual shortness of breath. Medications: Medication Review Details: Current Medications Acetaminophen (Acetaminophen 325 Mg Tablet) 650 mg PO Q6H PRN PRN Reason: Mild/Mod Pain Or Temp >/= 101 Last Admin: 01/27/22 11:07 Dose: 650 mg Apixaban (Apixaban 5 Mg Tablet) 5 mg PO BID@0900,2100 [facility] Last Admin: 01/28/22 09:18 Dose: 5 mg Dextrose (Dextrose 50% Syringe 50 Ml) 25 ml IVP ONCE PRN; Protocol PRN Reason: hypoglycemia protocol Dextrose (Dextrose 50% Syringe 50 Ml) 50 ml IVP PRN PRN; Protocol PRN Reason: hypoglycemia protocol Diltiazem HCl (Diltiazem 30 Mg Tablet) 30 mg PO Q6H [facility] Last Admin: 01/28/22 05:24 Dose: 30 mg Furosemide (Furosemide 10 Mg/Ml Sdv 4ml) 40 mg IVP DAILY [facility] Glucagon (Glucagon 1 Mg/Ml Inj 1 Ml) 1 mg IM ONCE PRN; Protocol PRN Reason: Adult Acute Hypoglycemia Prot. Hydralazine HCl (Hydralazine 25 Mg Tablet) 50 mg PO TID [facility] Last Admin: 01/28/22 09:18 Dose: 50 mg Dextrose (D5w) 500 mls @ 100 mls/hr IV ONCE PRN; Protocol PRN Reason: Adult Acute Hypoglycemia Prot Sodium Chloride (Sodium Chloride 0.9%) 1,000 mls @ 75 mls/hr IV .[id number] [facility] Last Admin: 01/28/22 03:12 Dose: 75 mls/hr Insulin Human Lispro (Insulin Lispro 100 Unit/1 Ml) 0 unit SUBCUT WM&BEDTIME [facility]; Protocol Last Admin: 01/28/22 09:19 Dose: 2 unit Labetalol HCl (Labetalol 5 Mg/Ml Sdv 20ml) 10 mg IVP Q4H PRN PRN Reason: HYPERTENSION Magnesium Lactate (Magnesium Lactate 84 Mg Tablet) 84 mg PO BID [facility] Last Admin: 01/28/22 09:18 Dose: 84 mg Metoprolol Tartrate (Metoprolol Tartrate 50 Mg Tablet) 100 mg PO BID@0900,2100 [facility] Last Admin: 01/28/22 09:18 Dose: 100 mg Morphine Sulfate (Morphine 4 Mg/Ml Sdv 1 Ml) 1 mg IVP Q8H PRN PRN Reason: SEVERE PAIN Last Admin: 01/28/22 09:48 Dose: 1 mg Ondansetron HCl (Ondansetron 2 Mg/Ml Sdv 2 Ml) 4 mg IVP Q2M PRN PRN Reason: NAUSEA Pantoprazole Sodium (Pantoprazole 40 Mg Sdv) 40 mg IVP Q24H [facility] Last Admin: 01/27/22 17:25 Dose: 40 mg Prednisone (Prednisone 20 Mg Tablet) 60 mg PO DAILY [facility] Stop: 01/31/22 09:01 Last Admin: 01/28/22 09:19 Dose: 60 mg Vitals/I&O/Wt Last Vital Signs Temp 98.0 F 01/28/22 08:00 Pulse 83 01/28/22 08:00 Resp 18 01/28/22 09:48 BP 105/72 01/28/22 08:00 Pulse Ox 98 01/28/22 08:00 O2 Del Method 01/27/22 15:18 01/27/22 01/28/22 01/28/22 22:59 06:59 14:59 Intake Total 840 / 1080 1138.75 / 2218.75 240 / 240 Output Total 200 / 400 Balance 640 / 680 1138.75 / 1818.75 240 / 240 Physical Exam Narrative: GENERAL: The patient is alert and oriented times three. Not in any acute distress. HEENT: No significant pallor, icterus or lymphadenopathy.Oral cavity: There are no mucous membrane lesions. NECK: Trachea appears to be central. No masses noted. No JVD or thyromegaly appreciated. RESPIRATORY: Chest is symmetrical. No intercostals muscle retraction or any accessory muscle activation. There is no chest wall tenderness. Breath sounds are heard bilaterally. No rales or rhonchi heard. No evidence of any consolidation. BREASTS: Deferred. HEART: The heart sounds are normal. No S3 or S4. No significant murmurs. No pericardial rub ABDOMEN: No vessel pulsations or distention. No tenderness. No organomegaly appreciated. Bowel sounds are normally heard. : Deferred. RECTAL: Deferred. LYMPHATIC: No lymphadenopathy noted in the neck. EXTREMITIES: Trace edema both lower extremities. MUSCULOSKELETAL: Tophaceous joints, involving the small joints of the hand and the elbows. Deformities of the small joints of the both hands SKIN: There are no significant rashes or ecchymosis NEUROPSYCHIATRIC: The patient is alert and oriented x3. Appears to be in a good mood. No tremors or rigidity noted. Data : 01/29/22 05:22 01/29/22 05:22 Other Labs: Laboratory Last Values WBC 13.6 10^3/uL (4.0-10.0) H 01/27/22 05:12 RBC 4.71 10^6/uL (4.1-5.3) 01/27/22 05:12 Hgb 12.2 g/dL (11.7-16.6) 01/27/22 05:12 Hct 40.6 % (42.0-52.0) L 01/27/22 05:12 MCV 86.2 fl (80-94) 01/27/22 05:12 MCH 25.9 pg (28.0-34.0) L 01/27/22 05:12 MCHC 30.0 g/dL (30.0-36.0) 01/27/22 05:12 RDW 14.1 % (12.1-15.1) 01/27/22 05:12 Plt Count 289 10^3/cmm (130-400) 01/27/22 05:12 MPV 10.8 fL (7.4-10.4) H 01/27/22 05:12 Neut % (Auto) 78.4 % 01/27/22 05:12 Lymph % (Auto) 6.9 % 01/27/22 05:12 Lynn % (Auto) 12.7 % 01/27/22 05:12 Eos % (Auto) 0.6 % 01/27/22 05:12 Baso % (Auto) 0.7 % 01/27/22 05:12 Neut # (Auto) 10.65 10^3/uL (1.8-7.7) H 01/27/22 05:12 Lymph # (Auto) 0.9 10^3/uL (0.8-4.8) 01/27/22 05:12 Lynn # (Auto) 1.7 10^3/uL (0.2-0.9) H 01/27/22 05:12 Eos # (Auto) 0.1 10^3/uL (0.0-0.8) 01/27/22 05:12 Baso # (Auto) 0.1 10^3/uL (0.0-0.1) 01/27/22 05:12 Nucleated RBC % (auto) 0 % 01/27/22 05:12 Nucleated RBCs # 0.0 /100WBC 01/27/22 05:12 PT 13.50 SECONDS (12.1-14.9) 01/25/22 14:11 INR 1.00 (0.8-1.2) 01/25/22 14:11 D-Dimer 2.08 ug/mIFEU (0-0.59) H 01/25/22 14:11 Sodium 132 mmol/L (136-145) L 01/27/22 05:12 Potassium 4.4 mmol/L (3.5-5.1) 01/27/22 05:12 Chloride 93 mmol/L (98-107) L 01/27/22 05:12 Carbon Dioxide 27 mmol/L (22-29) 01/27/22 05:12 Anion Gap 16.4 (5-19) 01/27/22 05:12 BUN 20 mg/dL (6-20) 01/27/22 05:12 Creatinine 1.8 mg/dL (0.7-1.2) H 01/27/22 05:12 GFR Calculation 39.1 mL/min (90-130) L 01/27/22 05:12 Glucose 162 mg/dL (65-115) H 01/27/22 05:12 POC Glucose 144 mg/dL (70-110) H 01/28/22 06:10 Estimat Average Glucose 128 01/25/22 14:11 Hemoglobin A1c 6.1 % (4.0-6.0) H 01/25/22 14:11 Calculated Osmolality 280 mOsm/kg (285-295) L 01/27/22 05:12 Lactic Acid 1.5 mmol/L (0.5-2.2) 01/25/22 17:22 Uric Acid 9.6 mg/dL (3.4-7.0) H 01/27/22 05:12 Calcium 8.9 mg/dL (8.5-10.5) 01/27/22 05:12 Magnesium 1.9 mg/dL (1.7-2.3) 01/27/22 05:12 Total Bilirubin 0.9 mg/dL (0.15-1.2) 01/26/22 02:26 AST 16 U/L (0-40) 01/26/22 02:26 ALT 14 U/L (0-41) 01/26/22 02:26 Alkaline Phosphatase 82 U/L (40-130) 01/26/22 02:26 Troponin T Baseline 14 ng/L (0-15) 01/25/22 17:22 Troponin T 120 Minute 13.45 ng/L (0-15) 01/25/22 18:56 Delta Troponin T 0.45 ABS# (0-10) 01/25/22 18:56 Troponin T Hi Sens 6Hr 14.38 ng/L (0-15) 01/25/22 23:10 Troponin T Hi Sens 6Hr Delta 0.38 ng/L (0-12) 01/25/22 23:10 NT-Pro-B Natriuret Pep 9172 pg/mL (0-125) H 01/25/22 14:11 Total Protein 6.5 g/dL (6.6-8.7) L 01/26/22 02:26 Albumin 3.4 g/dL (3.5-5.2) L 01/26/22 02:26 Globulin 3.1 g/dL (1.3-4.6) 01/26/22 02:26 Triglycerides 180 mg/dL (0-150) H 01/25/22 14:11 Cholesterol 172 mg/dL (0-200) 01/25/22 14:11 LDL Cholesterol, Calc 101 mg/dL (50-129) 01/25/22 14:11 HDL Cholesterol 35 mg/dL (60-100) L 01/25/22 14:11 LDL/HDL Ratio 2.89 RATIO (0.00-3.22) 01/25/22 14:11 Cholesterol/HDL Ratio 4.91 mg/dL (1.0-5.00) 01/25/22 14:11 Procalcitonin 0.10 ng/mL (0-0.5) 01/25/22 14:11 Procalcitonin Cancelled 01/25/22 14:11 TSH 1.65 uIU/mL (0.27-4.20) 01/25/22 14:11 Urine Color Straw (Yellow) 01/25/22 16:58 Urine Appearance Clear (CLEAR) 01/25/22 16:58 Urine pH 7 (5-7) 01/25/22 16:58 Ur Specific [place] 1.005 (1.005-1.030) 01/25/22 16:58 Urine Protein Neg (Negative) 01/25/22 16:58 Urine Glucose (UA) Norm (Normal) 01/25/22 16:58 Urine Ketones Negative (Negative) 01/25/22 16:58 Urine Blood Neg (Negative) 01/25/22 16:58 Urine Nitrate Negative (Negative) 01/25/22 16:58 Urine Bilirubin Neg (Negative) 01/25/22 16:58 Urine Urobilinogen Norm mg/dL (Negative) 01/25/22 16:58 Ur Leukocyte Esterase Negative (Negative) 01/25/22 16:58 Urine Opiates Screen Negative ng/mL (Negative) 01/25/22 16:58 Ur Barbiturates Screen Negative ng/mL (Negative) 01/25/22 16:58 Ur Phencyclidine Scrn Negative ng/mL (Negative) 01/25/22 16:58 Ur Amphetamines Screen Negative ng/mL (Negative) 01/25/22 16:58 U Benzodiazepines Scrn Negative ng/mL (Negative) 01/25/22 16:58 Urine Cocaine Screen Negative ng/mL (Negative) 01/25/22 16:58 U Marijuana (THC) Screen Negative ng/mL (Negative) 01/25/22 16:58 Coronavirus 229E (PCR) Not detected (NOT DETECT) 01/25/22 17:43 SARS-CoV-2 (PCR) Not detected (NOT DETECT) 01/25/22 17:43 SARS-CoV-2 Ag (Rapid) Negative (Negative) 01/25/22 15:05 A&P Assessment and plan (1) Heart failure with preserved ejection fraction: Patient had a Myocardial perfusion imaging today. He was found to have no significant perfusion abnormalities. Based on the results, since the probability of him having significant coronary ischemia is very low. At this point, it may be appropriate to continue the medical treatment. Patient may be started on Lasix 40 mg p.o. daily with potassium 20 mEq p.o. daily Status: Acute (2) New onset atrial fibrillation: Atrial fibrillation currently with a controlled ventricular response rate. Agree with anticoagulation. May titrate the dose of the metoprolol for better heart rate control patient has a high thromboembolic risk. He needs to be on long-term oral anticoagulation, possibly with Eliquis. Status: Acute (3) AMBER (acute kidney injury): We will be careful with the IV diuresis. Status: Acute Plan Other problems are Small pleural effusion, possibly from the heart failure Elevated white cell count- slightly going up Gouty arthritis, -acute exacerbation,?. Management of possible gouty arthritis, as per the primary. Since the patient's overall cardiovascular status seems to be stable, may require any specific treatment. I may start the patient on Lasix 40 mg p.o. daily along with the potassium 10 mEq p.o. daily. He will be seen by the nurse practitioner in the office in a week to adjust the dose of diuretics. I may see him in the office in a month. Attestations Medical Necessity Statement*: Possible discharge home today or tomorrow Coding Level of Care Code Acute Machine Operations Supervisor for Dru Fwd History Expanded Problem Focused Exam Expanded Problem Focused Medical Decision Making Moderate Complexity Diagnoses Heart failure with preserved ejection fraction I50.30 New onset atrial fibrillation I48.91 AMBER (acute kidney injury) N17.9
[2022-01-28 12:22] LABS: Glucose Point of Care 351 mg/dL (70-110)
[2022-01-28 12:52] LABS: Basophils % 0.3 %; Eosinophils % 0.1 %; Hemoglobin 11.9 g/dL (11.7-16.6); Lymphocytes # 0.5 10^3/uL (0.8-4.8); Lymphocytes % 3.7 %; Mean Corpuscular HGB Conc 30.5 g/dL (30.0-36.0); Mean Corpuscular Hemoglobin 26.3 pg (28.0-34.0); Mean Corpuscular Volume 86.1 fl (80-94); Mean Platelet Volume 10.8 fL (7.4-10.4); Monocytes # 0.7 10^3/uL (0.2-0.9); Monocytes % 4.6 %; Neutrophils # 12.84 10^3/uL (1.8-7.7); Neutrophils % 90.2 %; Nucleated Red Blood Cells % 0 %; Platelet Count 318 10^3/cmm (130-400); Red Blood Count 4.53 10^6/uL (4.1-5.3); Red Cell Distribution Width 14.3 % (12.1-15.1); White Blood Count 14.2 10^3/uL (4.0-10.0)
[2022-01-28 13:09] LABS: Alanine Aminotransferase 8 U/L (0-41); Albumin Level 3.5 g/dL (3.5-5.2); Alkaline Phosphatase 72 U/L (40-130); Anion Gap 15.5 (5-19); Aspartate Amino Transferase 9 U/L (0-40); Blood Urea Nitrogen 25 mg/dL (6-20); Calcium 8.8 mg/dL (8.5-10.5); Carbon Dioxide 25 mmol/L (22-29); Chloride 95 mmol/L (98-107); Globulin 3.6 g/dL (1.3-4.6); Glomerular Filtration Rate 39.1 mL/min (90-130); Glucose 358 mg/dL (65-115); Osmolality Calculated 291 mOsm/kg (285-295); Potassium 4.5 mmol/L (3.5-5.1); Sodium 131 mmol/L (136-145); Total Bilirubin 0.7 mg/dL (0.15-1.2); Total Protein 7.1 g/dL (6.6-8.7)
--- NOTE | 2022-01-28 15:01 | PM.PN ---
Subjective Subjective: Hospital course, labs appreciated on examination patient sitting comfortably in bed with family at bedside. Patient is awake and alert. Asking to go home. Denies any nausea, vomiting, headache. Currently on normal saline running at 75 cc/h. States she does not have any difficulty in passing urine. Vitals/I&O/Wt Last Vital Signs Temp 97.7 F 01/28/22 12:00 Pulse 91 01/28/22 12:00 Resp 18 01/28/22 12:00 BP 124/79 01/28/22 12:00 Pulse Ox 93 01/28/22 12:00 O2 Del Method 01/27/22 15:18 01/28/22 01/28/22 01/28/22 06:59 14:59 22:59 Intake Total 1138.75 / 2218.75 890 / 890 Output Total 300 / 300 Balance 1138.75 / 1818.75 590 / 590 Physical Exam Narrative: Pleasant male Currently saturating well on room air 1+ bilateral lower extremity edema Abdomen soft, nontender S1, S2 variable No murmur appreciated Awake and alert Nonfocal neuro exam at the bedside No active chest pain EOMI, PERRLA Nonfocal neuro exam Lungs clear to auscultation bilaterally , no wheezes or ronchi tophi noted on hands, elbows. b/l feet very tender to light touch. Data : 01/28/22 12:45 01/28/22 12:45 A&P Assessment and plan (1) Atrial fibrillation with RVR: Status: Acute (2) Pleural effusion: Status: Acute (3) Leg edema: Status: Acute (4) Acute dyspnea: Status: Acute (5) CHF exacerbation: Status: Acute (6) AMBER (acute kidney injury): Status: Acute Plan New onset A. fib RVR Rate well controlled. Echocardiogram done shows left ventricular function probably at lower limit of normal to mildly diminished but difficult to assess. Continue patient on Cardizem 30 every 6, metoprolol 100 twice daily Continue with Eliquis 5 mg twice daily. Hypertensive urgency: Resolved. Blood pressure at the time of admission 160/105mmhg TSH normal. Goal blood pressure less than 140/90 mmHg. Continue hold off on ROSALINA/ARB given AMBER. Continue with hydralazine 50 mg 3 times a day, Cardizem, metoprolol. New onset congestive heart failure Most likely diastolic heart failure. Compensated now. Strict input output charting, daily weights. Fluid restriction up to 1500 cc. Patient euvolemic currently. Hold off on any further diuresis or fluids. Lexiscan stress test negative for any acute ischemia. Ischemic cardiomyopathy ruled out. AMBER: Baseline creatinine around 1.2. Worsening to 1.8 yesterday. Most likely related to prerenal cardiorenal in nature, hold olmesartan Repeat labs. Continue gentle IV hydration. Renal ultrasound. Type 2 diabetes mellitus: Blood sugar elevated given steroid use. Increase sliding scale to high-dose protocol. Monitor blood sugars. Acute gout flare, hx of tophaceous gout Given extremely elevated blood sugars for now we will hold off on prednisone. Patient received 2 days of course. Uric acid elevated. Start on allopurinol 100 mg daily. Will monitor renal functions. f/u with rheumatology outpatient Full code Eliquis is suffice as DVT prophylaxis Famotidine for PUD prophylaxis Full code Cardiac diet Attestations Medical Necessity Statement*: Requires further hospitalization for management of acute kidney injury Time Spent in Patient Care: Greater than 35 minutes Coding Level of Care Code Acute Surgical Device Sales Representative for Chg Fwd Diagnoses Atrial fibrillation with RVR I48.91 Pleural effusion J90 Leg edema R60.0 Acute dyspnea R06.00 CHF exacerbation I50.9 AMBER (acute kidney injury) N17.9
[2022-01-28] MEDS: allopurinol 100 mg Tablet PO (15:28)
[2022-01-28 17:15] LABS: Glucose Point of Care 255 mg/dL (70-110)
[2022-01-28] MEDS: pantoprazole 40 mg SDV IVP (17:18)
[2022-01-28 20:35] LABS: Glucose Point of Care 325 mg/dL (70-110)
[2022-01-29] MEDS: dilTIAZem 30 mg Tablet PO ×2 (00:05→05:59)
[2022-01-29 04:00] VITALS: BP 125/72; PULSE 76; RESP 18; TEMP 36.5; O2SAT 98
[2022-01-29 05:45] LABS: Basophils % 0.3 %; Eosinophils % 0.1 %; Hemoglobin 11.3 g/dL (11.7-16.6); Lymphocytes % 7.3 %; Mean Corpuscular HGB Conc 29.7 g/dL (30.0-36.0); Mean Corpuscular Hemoglobin 26.4 pg (28.0-34.0); Mean Corpuscular Volume 88.8 fl (80-94); Mean Platelet Volume 10.7 fL (7.4-10.4); Monocytes # 1.6 10^3/uL (0.2-0.9); Monocytes % 11.8 %; Neutrophils % 79.2 %; Nucleated Red Blood Cells % 0 %; Platelet Count 308 10^3/cmm (130-400); Red Blood Count 4.28 10^6/uL (4.1-5.3); Red Cell Distribution Width 14.4 % (12.1-15.1); White Blood Count 13.4 10^3/uL (4.0-10.0)
[2022-01-29] MEDS: sodium chloride 0.9% 1,000 ML 75 ML IV (05:59)
[2022-01-29 06:09] LABS: Alanine Aminotransferase 10 U/L (0-41); Albumin Level 3.1 g/dL (3.5-5.2); Alkaline Phosphatase 66 U/L (40-130); Anion Gap 13.6 (5-19); Aspartate Amino Transferase 13 U/L (0-40); Blood Urea Nitrogen 27 mg/dL (6-20); Calcium 8.9 mg/dL (8.5-10.5); Carbon Dioxide 24 mmol/L (22-29); Chloride 103 mmol/L (98-107); Globulin 3.5 g/dL (1.3-4.6); Glomerular Filtration Rate 48.2 mL/min (90-130); Glucose 202 mg/dL (65-115); Osmolality Calculated 293 mOsm/kg (285-295); Potassium 4.6 mmol/L (3.5-5.1); Sodium 136 mmol/L (136-145); Total Bilirubin 0.4 mg/dL (0.15-1.2); Total Protein 6.6 g/dL (6.6-8.7)
[2022-01-29 06:20] VITALS: PULSE 88
[2022-01-29 06:41] LABS: Glucose Point of Care 177 mg/dL (70-110)
[2022-01-29 07:34] VITALS: BP 136/86; PULSE 91; RESP 21; TEMP 36.7; O2SAT 95
[2022-01-29] MEDS: insulin lispro 100 unit/1 mL SUBCUT (08:55)
[2022-01-29] MEDS: magnesium lactate 84 mg Tablet PO (08:56)
[2022-01-29] MEDS: metoprolol tartrate 50 mg Tablet 100 MG PO (08:56)
[2022-01-29] MEDS: allopurinol 100 mg Tablet PO (08:56)
[2022-01-29] MEDS: hyDRALAzine 25 mg Tablet 50 MG PO (08:56)
[2022-01-29] MEDS: apixaban 5 mg Tablet PO (08:56)
[2022-01-29] MEDS: acetaminophen 325 mg Tablet 650 MG PO (09:53)
--- NOTE | 2022-01-29 10:00 | P.DS_ITS ---
Discharge Providers Date of Admission: 01/25/22 16:29 Date of Discharge: January 29, 2022 Attending Provider at Admission: Yasmin Guerin MD Attending Provider at Discharge: Graham Schmitz MD Consults: Cardiology: Dr. Ayala Primary Care Provider: Toshia Park APN Diagnoses at Discharge Discharge Diagnosis (1) Atrial fibrillation with RVR: Status: Acute (2) Pleural effusion: Status: Acute (3) Leg edema: Status: Acute (4) Acute dyspnea: Status: Acute (5) CHF exacerbation: Status: Acute (6) AMBER (acute kidney injury): Status: Acute Reason for Visit Reason for Visit: sob Hospital Course Hospital Course Ash Alejandre is a 56 year old male with a history of diabetes, essential benign hypertension, gouty arthritis, is presenting with complaints of shortness of breath and leg swelling for the last 2 weeks. This patient has no previous history for any cardiac illness.? For the last 2 weeks, he been having significantly dyspnea on exertion and some orthopnea.? He was finding it difficult to lie flat.? He was mostly sitting up in the chair.? For the last 3 to 4 days, he was not able to sleep well even with the sitting position.? Because of these, he decided to come to the hospital emergency room.? He did not have any chest pain or palpitations.? No fever, chills.? He might have some dry cough. Initially he thought that he may be having COVID-19 infection.? However since the symptoms are not getting better, he decided to come to the hospital.? He denies any chest pain or palpitations.? No dizziness or syncopal episodes.? He is mostly having a dry cough. On admission patient was found to have a new onset of A. fib with RVR, hypertensive urgency and heart failure like symptoms. He was treated with IV Cardizem which tolerated transition to oral Cardizem along with continuation of his home dose of metoprolol. He was also in hypertensive urgency on admission which was treated with further adjustment of antihypertensives. Cardiology was consulted. He underwent echocardiogram which was a poor study given high heart rate. For concerns of new heart failure and atrial fibrillation he underwent Lexiscan stress test on 01/27 which was negative for any acute ischemia with an EF of around 59%. His hospitalization was complicated by him developing acute kidney injury which was managed by managing his fluid status. Has been discharged in medically stable condition on adjusted antihypertensive advised to follow-up with her primary care provider within the next 1 week. Physical Exam Narrative: Pleasant male Currently saturating well on room air 1+ bilateral lower extremity edema Abdomen soft, nontender S1, S2 variable No murmur appreciated Awake and alert Nonfocal neuro exam at the bedside No active chest pain EOMI, PERRLA Nonfocal neuro exam Lungs clear to auscultation bilaterally , no wheezes or ronchi tophi noted on hands, elbows. b/l feet very tender to light touch. Discharge Data Studies Completed and Pending Completed Studies During Hospitalization Category Date Time Status CTA chest [CT angio chest PE protcl [id number]] Stat Cat Scan 01/25/22 15:01 Completed CXRP [XR chest 1V portable [id number]] Stat Exams 01/25/22 14:22 Completed Sestamibi Stress Test Request Routine Exams 01/27/22 04:00 Draft NM prciila perf SPECT r/s* [id number] Routine Nuc Med 01/27/22 08:00 [place] [id number] Urgent Ultrasound 01/25/22 16:52 Completed CV. echo complete* [id number] Urgent Ultrasound 01/25/22 16:36 Completed Radiology Impressions Chest X-Ray 01/25/22 14:22 IMPRESSION: No acute findings. Chest CTA 01/25/22 15:01 IMPRESSION: Bilateral small volume pleural effusions. Venous Duplex 01/25/22 16:52 IMPRESSION: No evidence of deep vein thrombosis. Lexiscan stress test: PERFUSION FINDINGS ?Small area of slightly decreased tracer uptake was noted in the basal, mid and?apical inferior wall region with no significant reversibility. ?FUNCTIONAL RESULTS ? ? (calculated via Gated SPECT) ? Stress Image LV EF (%):? ? 59 ? Stress EDV (mL):125? TID:? 1.09 ? Stress ESV (mL):51 ?FUNCTIONAL FINDINGS: ?Segmental wall motion analysis revealing no gross wall motion abnormalities ?IMPRESSIONS ?1.? Myocardial perfusion imaging revealing small area of persistent decreased?tracer uptake in the inferior wall region suggesting myocardial scarring versus?attenuation artifact. ?2.? Normal LV ejection fraction 59%. ?3.? Segmental wall motion analysis revealing no gross wall motion abnormalities ?4.? LV volume, upper limit of normal(51 mL) ?Low probability for coronary ischemia, based on the above findings?No similar previous studies are available for comparison ?Dr Aaliyah Ayala MD [facility] ?(Electronically Signed) ?Final Date:? ? ? 27 January 2022 ? 08:39 Laboratory Results WBC 13.4 10^3/uL (4.0-10.0) H 01/29/22 05:22 RBC 4.28 10^6/uL (4.1-5.3) 01/29/22 05:22 Hgb 11.3 g/dL (11.7-16.6) L 01/29/22 05:22 Hct 38.0 % (42.0-52.0) L 01/29/22 05:22 MCV 88.8 fl (80-94) 01/29/22 05:22 MCH 26.4 pg (28.0-34.0) L 01/29/22 05:22 MCHC 29.7 g/dL (30.0-36.0) L 01/29/22 05:22 RDW 14.4 % (12.1-15.1) 01/29/22 05:22 Plt Count 308 10^3/cmm (130-400) 01/29/22 05:22 MPV 10.7 fL (7.4-10.4) H 01/29/22 05:22 Neut % (Auto) 79.2 % 01/29/22 05:22 Lymph % (Auto) 7.3 % 01/29/22 05:22 Todd % (Auto) 11.8 % 01/29/22 05:22 Eos % (Auto) 0.1 % 01/29/22 05:22 Baso % (Auto) 0.3 % 01/29/22 05:22 Neut # (Auto) 10.60 10^3/uL (1.8-7.7) H 01/29/22 05:22 Lymph # (Auto) 1.0 10^3/uL (0.8-4.8) 01/29/22 05:22 Todd # (Auto) 1.6 10^3/uL (0.2-0.9) H 01/29/22 05:22 Eos # (Auto) 0.0 10^3/uL (0.0-0.8) 01/29/22 05:22 Baso # (Auto) 0.0 10^3/uL (0.0-0.1) 01/29/22 05:22 Nucleated RBC % (auto) 0 % 01/29/22 05:22 Nucleated RBCs # 0.0 /100WBC 01/29/22 05:22 PT 13.50 SECONDS (12.1-14.9) 01/25/22 14:11 INR 1.00 (0.8-1.2) 01/25/22 14:11 D-Dimer 2.08 ug/mIFEU (0-0.59) H 01/25/22 14:11 Sodium 136 mmol/L (136-145) 01/29/22 05:22 Potassium 4.6 mmol/L (3.5-5.1) 01/29/22 05:22 Chloride 103 mmol/L (98-107) 01/29/22 05:22 Carbon Dioxide 24 mmol/L (22-29) 01/29/22 05:22 Anion Gap 13.6 (5-19) 01/29/22 05:22 BUN 27 mg/dL (6-20) H 01/29/22 05:22 Creatinine 1.5 mg/dL (0.7-1.2) H 01/29/22 05:22 GFR Calculation 48.2 mL/min (90-130) L 01/29/22 05:22 Glucose 202 mg/dL (65-115) H 01/29/22 05:22 POC Glucose 177 mg/dL (70-110) H 01/29/22 06:27 Estimat Average Glucose 128 01/25/22 14:11 Hemoglobin A1c 6.1 % (4.0-6.0) H 01/25/22 14:11 Calculated Osmolality 293 mOsm/kg (285-295) 01/29/22 05:22 Lactic Acid 1.5 mmol/L (0.5-2.2) 01/25/22 17:22 Uric Acid 9.6 mg/dL (3.4-7.0) H 01/27/22 05:12 Calcium 8.9 mg/dL (8.5-10.5) 01/29/22 05:22 Magnesium 1.9 mg/dL (1.7-2.3) 01/27/22 05:12 Total Bilirubin 0.4 mg/dL (0.15-1.2) 01/29/22 05:22 AST 13 U/L (0-40) 01/29/22 05:22 ALT 10 U/L (0-41) 01/29/22 05:22 Alkaline Phosphatase 66 U/L (40-130) 01/29/22 05:22 Troponin T Baseline 14 ng/L (0-15) 01/25/22 17:22 Troponin T 120 Minute 13.45 ng/L (0-15) 01/25/22 18:56 Delta Troponin T 0.45 ABS# (0-10) 01/25/22 18:56 Troponin T Hi Sens 6Hr 14.38 ng/L (0-15) 01/25/22 23:10 Troponin T Hi Sens 6Hr Delta 0.38 ng/L (0-12) 01/25/22 23:10 NT-Pro-B Natriuret Pep 9172 pg/mL (0-125) H 01/25/22 14:11 Total Protein 6.6 g/dL (6.6-8.7) 01/29/22 05:22 Albumin 3.1 g/dL (3.5-5.2) L 01/29/22 05:22 Globulin 3.5 g/dL (1.3-4.6) 01/29/22 05:22 Triglycerides 180 mg/dL (0-150) H 01/25/22 14:11 Cholesterol 172 mg/dL (0-200) 01/25/22 14:11 LDL Cholesterol, Calc 101 mg/dL (50-129) 01/25/22 14:11 HDL Cholesterol 35 mg/dL (60-100) L 01/25/22 14:11 LDL/HDL Ratio 2.89 RATIO (0.00-3.22) 01/25/22 14:11 Cholesterol/HDL Ratio 4.91 mg/dL (1.0-5.00) 01/25/22 14:11 Procalcitonin 0.10 ng/mL (0-0.5) 01/25/22 14:11 Procalcitonin Cancelled 01/25/22 14:11 TSH 1.65 uIU/mL (0.27-4.20) 01/25/22 14:11 Urine Color Straw (Yellow) 01/25/22 16:58 Urine Appearance Clear (CLEAR) 01/25/22 16:58 Urine pH 7 (5-7) 01/25/22 16:58 Ur Specific [place] 1.005 (1.005-1.030) 01/25/22 16:58 Urine Protein Neg (Negative) 01/25/22 16:58 Urine Glucose (UA) Norm (Normal) 01/25/22 16:58 Urine Ketones Negative (Negative) 01/25/22 16:58 Urine Blood Neg (Negative) 01/25/22 16:58 Urine Nitrate Negative (Negative) 01/25/22 16:58 Urine Bilirubin Neg (Negative) 01/25/22 16:58 Urine Urobilinogen Norm mg/dL (Negative) 01/25/22 16:58 Ur Leukocyte Esterase Negative (Negative) 01/25/22 16:58 Urine Opiates Screen Negative ng/mL (Negative) 01/25/22 16:58 Ur Barbiturates Screen Negative ng/mL (Negative) 01/25/22 16:58 Ur Phencyclidine Scrn Negative ng/mL (Negative) 01/25/22 16:58 Ur Amphetamines Screen Negative ng/mL (Negative) 01/25/22 16:58 U Benzodiazepines Scrn Negative ng/mL (Negative) 01/25/22 16:58 Urine Cocaine Screen Negative ng/mL (Negative) 01/25/22 16:58 U Marijuana (THC) Screen Negative ng/mL (Negative) 01/25/22 16:58 Coronavirus 229E (PCR) Not detected (NOT DETECT) 01/25/22 17:43 SARS-CoV-2 (PCR) Not detected (NOT DETECT) 01/25/22 17:43 SARS-CoV-2 Ag (Rapid) Negative (Negative) 01/25/22 15:05 Vitals Last Vital Signs Temp 98.0 F 01/29/22 07:34 Pulse 91 01/29/22 07:34 Resp 21 H 01/29/22 07:34 BP 136/86 01/29/22 07:34 Pulse Ox 95 01/29/22 07:34 O2 Del Method 01/29/22 07:34 Discharge Plan Discharge Patient Disposition: Home Condition: Stable Prescriptions: New hydralazine 25 mg Tablet 50 mg PO TID 30 Days Qty: 180 0RF magnesium L-lactate [Magtab] 84 mg Tablet Extended Release 84 mg PO BID Qty: 30 0RF Eliquis 5 mg Tablet 5 mg PO BID@0900,2100 Qty: 60 0RF allopurinol 100 mg Tablet 100 mg PO DAILY Qty: 30 0RF diltiazem HCl [Cardizem CD] 120 mg capsule,extended release 24hr 120 mg PO DAILY Qty: 30 0RF Continued prednisone 5 mg tablet 10 mg PO DAILY PRN (Reason: joint pain) glipizide 5 mg tablet See Rx Instructions .ROUTE .COMPLEX Rx Instructions: 5 mg orally in the morning and 10mg orally in the evening sildenafil 100 mg tablet 50 mg PO DAILY PRN (Reason: Erectile Dysfunction) Changed metoprolol tartrate 50 mg tablet 100 mg PO BID 30 Days Qty: 120 0RF Discontinued olmesartan 40 mg tablet 40 mg PO DAILY naproxen sodium 550 mg tablet 550 mg PO BID PRN (Reason: Pain) Discharge Orders: Discharge Order (Routine); Ordered 01/29/22 Ordered By: Graham Schmitz Referrals: Toshia Park APN [Primary Care Provider] - 7-10 days Discharge Diet: Cardiac and Diabetic Discharge Activity: Resume usual activity and Increase activity as tolerated Patient Instructions: Opioid Safety Activity Restrictions/Additional Instructions: Fluid restriction up to 2 L daily. Multiple medication changes have been 89-year-old home medications. Home dose of metoprolol has been increased 200 mg twice daily. Olmesartan has been stopped. Hydralazine 50 mg 3 times a day has been added. Please also take Cardizem 120 mg oral daily. Take allopurinol 100 mg oral daily. Please follow with a primary care provider within next 1 week for repeat CMP to monitor kidney functions. Discharge Attestations Time Spent in Discharge Care*: greater than 30 min Specific Discharge Activities: educating patient, educating and/or supporting family/caregiver, discussing with pcp/other providers, discussing with hospice case manager/social workers/dc planners, documenting/other paperwork and evaluating patient/reviewing data Status at Discharge: Cognitive status at discharge: cognitively intact , Behavioral status at discharge: cooperative , Functional status at discharge: independent ambulation , Overall status at discharge: patient is back to baseline Quality Metrics Clinical Quality Measures [ No reported AMI, CVA or VTE this stay] Coding Level of Care Code Acute Chg FW DC note Diagnoses Atrial fibrillation with RVR I48.91 Pleural effusion J90 Leg edema R60.0 Acute dyspnea R06.00 CHF exacerbation I50.9 AMBER (acute kidney injury) N17.9
--- NOTE | 2022-01-29 11:49 | PC.NURSE ---
discharge instructions given and explained.pt and spouse verb understanding of instructions.discharged via w/c to exit.spouse to drive pt home
[2022-01-29 11:50] VITALS: BP 136/86; PULSE 91; RESP 21; TEMP 36.7; O2SAT 95
== END 2022-01-29 17:31 | disposition home or self-care (01) ==
LOC: ER 16:37 → MEDSURG 18:42
PROVIDERS: Admitting Provider Internal Medicine; Emergency Provider Emergency Medicine; PCP Nurse Practitioner Family; Visit Provider Student in an Organized Health Care Education/Training Program
DX: I48.91 Unspecified atrial fibrillation (principal); J90 Pleural effusion, not elsewhere classified; R60.0 Localized edema; I11.0 Hypertensive heart disease with heart failure; I50.9 Heart failure, unspecified; I16.0 Hypertensive urgency; R06.00 Dyspnea, unspecified; N17.9 Acute kidney failure, unspecified; E11.9 Type 2 diabetes mellitus without complications; M10.9 Gout, unspecified; Z79.4 Long term (current) use of insulin; M79.89 Other specified soft tissue disorders; N40.0 Benign prostatic hyperplasia without lower urinary tract symptoms; Z87.891 Personal history of nicotine dependence; R06.02 Shortness of breath; M79.605 Pain in left leg; M79.604 Pain in right leg; Z79.52 Long term (current) use of systemic steroids
CPT/HCPCS: 36415; 36416; 71045; 71275; 76770; 78452; 80048; 80053; 80061; 80306; 81003; 82962; 83036; 83605; 83735; 83880; 84145; 84443; 84484; 84550; 85025; 85378; 85610; 87426; 87635; 93005; 93306; 93970; 94664; 96372; 96374; 96375; 99285; A9500; C9113; G0378; J1650; J1815; J1940; J2270; J2785; J3475; J3490; J7030; J7512; Q9967

== ENCOUNTER 2022-06-30 13:01 | Outpatient (CLI) | payer BC, SELFPAY ==
--- NOTE | 2022-06-30 | XR_ITS ---
WS: [id number] Exam: XR knee LT 3V* [id number] Date/Time of Exam: 06/30/2022 1:13 PM Reason For Exam: PAIN IN LEFT KNEE No fracture or dislocation. Severe degenerative narrowing of the medial compartment with [id number] articulation. Spurring of the posterior patella. Moderate sized effusion in the suprapatellar bursa. XR/XR knee LT 3V* [id number] IMPRESSION: 1. Advanced degenerative changes most severe involving the medial joint compart ment. 2. No acute fracture. 3. Joint effusion.
--- NOTE | 2022-06-30 | XR_ITS ---
WS: [id number] Exam: XR knee RT 3V* [id number] Date/Time of Exam: 06/30/2022 1:13 PM Reason For Exam: PAIN IN RT KNEE Comparison 08/22/2020. Advanced tricompartmental degenerative change noted most severe involving the medial compartment. The re is [id number] articulation. Chondrocalcinosis of the medial meniscus. No significant joint effus ion. Spurring of the posterior patella. Varus deformity of the knee. XR/XR knee RT 3V* [id number] IMPRESSION: 1. 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 2. Chondrocalcinosis.
== END 2022-06-30 13:02 | disposition home or self-care (01) ==
PROVIDERS: PCP Nurse Practitioner Family; Visit Provider Nurse Practitioner Family
DX: M17.0 Bilateral primary osteoarthritis of knee (principal); M11.261 Other chondrocalcinosis, right knee; M25.462 Effusion, left knee
CPT/HCPCS: 73562

== ENCOUNTER 2022-08-12 10:21 | Outpatient (CLI) | payer BC, SELFPAY ==
--- NOTE | 2022-08-12 10:39 | XR_ITS ---
WS: [id number] XR chest 2V* [id number] REASON FOR EXAM: PREPROCEDURAL EXAMINATION FINDINGS: The heart and mediastinum are within normal limits. Calcified granulomatous disease in both hemithoraces. No active pulmonary parenchymal or pleural disease is noted. There is elevation of the right hemidiaphragm. Mild changes of degenerative spondylosis in the mid and lower thoracic spine. XR/XR chest 2V* [id number] IMPRESSION: No active pulmonary parenchymal or pleural disease.
== END 2022-08-12 10:22 | disposition home or self-care (01) ==
PROVIDERS: PCP Nurse Practitioner Family; Visit Provider Nurse Practitioner Family
DX: Z01.818 Encounter for other preprocedural examination (principal)
CPT/HCPCS: 71046

== ENCOUNTER 2022-09-07 06:00 | Outpatient (RCR) | payer BC, SELFPAY | END 2022-10-07 23:59 | disposition home or self-care (01) | LOC: APT 06:00 | PROVIDERS: Visit Provider Student in an Organized Health Care Education/Training Program | DX: Z47.89 Encounter for other orthopedic aftercare (principal); Z96.652 Presence of left artificial knee joint | CPT/HCPCS: 97110; 97163; 97530 ==

== ENCOUNTER 2022-10-08 06:00 | Outpatient (RCR) | payer BC, SELFPAY | END 2022-11-06 23:59 | disposition home or self-care (01) | LOC: APT 06:00 | PROVIDERS: Visit Provider Student in an Organized Health Care Education/Training Program | DX: Z47.1 Aftercare following joint replacement surgery (principal); Z96.652 Presence of left artificial knee joint | CPT/HCPCS: 97110; 97140; 97530 ==

== ENCOUNTER 2024-10-18 13:02 | Outpatient (CLI) | payer BC, SELFPAY | END 2024-10-18 13:03 | disposition home or self-care (01) | PROVIDERS: PCP Nurse Practitioner Family; Visit Provider Nurse Practitioner Family | DX: Z48.815 Encounter for surgical aftercare following surgery on the digestive system (principal) | CPT/HCPCS: 87070; 87077; 87186 ==

== ENCOUNTER 2024-11-02 15:57 | Outpatient (CLI) | payer SELFPAY ==
[2024-11-02 16:41] LABS: Alanine Aminotransferase 13 U/L (0-41); Albumin Level 3.3 g/dL (3.5-5.2); Alkaline Phosphatase 81 U/L (40-130); Blood Urea Nitrogen 22 mg/dL (6-20); Calcium 8.9 mg/dL (8.5-10.5); Carbon Dioxide 22 mmol/L (22-29); Chloride 101 mmol/L (98-107); Globulin 3.3 g/dL (1.3-4.6); Glomerular Filtration Rate 41.5 mL/min (90-130); Glucose 107 mg/dL (65-115); Osmolality Calculated 288 mOsm/kg (285-295); Sodium 137 mmol/L (136-145); Total Bilirubin 0.2 mg/dL (0.15-1.2); Total Protein 6.6 g/dL (6.6-8.7)
[2024-11-02 16:42] LABS: Anion Gap 18.8 (5-19); Aspartate Amino Transferase 27 U/L (0-40); Potassium 4.8 mmol/L (3.5-5.1)
== END 2024-11-02 15:58 | disposition home or self-care (01) ==
LOC: LAB 15:59
PROVIDERS: PCP Nurse Practitioner Family; Visit Provider Nurse Practitioner Family
DX: N18.30 Chronic kidney disease, stage 3 unspecified (principal)
CPT/HCPCS: 80053

== ENCOUNTER → 2025-01-03 09:22 | Outpatient (BNVA) | payer MEDICARE, SELFPAY | PROVIDERS: PCP Nurse Practitioner Family; Visit Provider Student in an Organized Health Care Education/Training Program | DX: M72.0 Palmar fascial fibromatosis [Dupuytren] (principal); M06.9 Rheumatoid arthritis, unspecified | CPT/HCPCS: 73130; 99204 ==